=== PATIENT | male | born 1980 | race Caucasian/White ===

== ENCOUNTER 2018-05-19 18:53 | Inpatient (IN) | payer SELFPAY ==
[2018-05-19] MEDS ORDERED: ONDANSETRON 4 MG/2 ML VIAL ONE ×2 (19:37→21:39)
[2018-05-19] MEDS ORDERED: PANTOPRAZOLE 40 MG INJ ONE (19:37)
[2018-05-19] MEDS ORDERED: NA CHLORIDE 0.9% 1,000 ML ONE (19:37)
[2018-05-19] MEDS ORDERED: NA CHLORIDE 0.9% 250 ML ONE (19:38)
[2018-05-19 20:11] LABS: Absolute Lymphocytes (CBC) 2.6 K/uL (0.7-4.9); Absolute Monocytes 0.8 K/uL (0.1-1.3); Absolute Neutrophil 3.9 K/uL (1.8-8.0); Eosinophils % 1.5 % (0-4.4); Hematocrit 47.1 % (39.6-49.0); Monocytes % 10.5 % (3.3-12.3); RBC Red Blood Cell Count 4.95 M/uL (4.33-5.43)
[2018-05-19 20:31] LABS: Protime INR 1.08
[2018-05-19 20:32] LABS: Albumin 3.6 g/dL (3.4-5.0); Bilirubin Direct 0.3 mg/dL (0-0.2); Bilirubin Total 1.8 mg/dL (0.2-1.0); Potassium 3.6 mmol/L (3.5-5.1); Protein, Total 6.9 g/dL (6.4-8.2)
[2018-05-19] MEDS ORDERED: MORPHINE 4 MG/ML SYR ONE (20:36)
[2018-05-19] MEDS ORDERED: MEPERIDINE HCL 50 MG/ML AMP ONE (21:35)
--- NOTE | 2018-05-19 22:13 | RAD REPORT ---
EXAM DESCRIPTION: US - Abdomen Exam Limited - 05/19/2018 9:55 pm CLINICAL HISTORY: ABD PAIN COMPARISON: No comparisons FINDINGS: The gallbladder demonstrates no gallstones. No pericholecystic fluid or gallbladder wall t hickening. The common bile duct is normal measuring 2 mm. The liver demonstrates no findings of intrahepatic biliary dilatation. IMPRESSION: Unremarkable examination.
--- NOTE | 2018-05-19 23:29 | ER ---
Nurse's Notes [facility] Name: Ramirez Bee Age: 37 yrs Sex: Male : 1980 Arrival Date: 05/19/2018 Time: 18:56 Bed 26 Private MD: Chavo Jennings Diagnosis: Hematemesis;Upper abdominal pain, unspecified;Blood in stool Presentation: 05/19 19:06 Presenting complaint: Patient states: Diarrhea and vomiting X3 days. pt stated bright ak1 red blood in stool and bright red blood in vomit. pt stated 5 bouts of Diarrhea today and vomited 8 times today. Transition of care: patient was not received from another setting of care. Onset of symptoms is unknown. Risk Assessment: Do you want to hurt yourself or someone else? Patient reports no desire to harm self or others. Initial Sepsis Screen: Does the patient meet any 2 criteria? No. Patient's initial sepsis screen is negative. Does the patient have a suspected source of infection? No. Patient's initial sepsis screen is negative. Care prior to arrival: None. 19:06 Method Of Arrival: Ambulatory ak1 19:06 Acuity: JERMAINE 3 ak1 Triage Assessment: 19:08 General: Appears in no apparent distress. Behavior is calm, cooperative. ak1 Historical: - Allergies: 19:08 No Known Allergies; ak1 - Home Meds: 19:08 None [Active]; ak1 - PMHx: 19:08 None; ak1 - PSHx: 19:08 None; ak1 - Immunization history:: Adult Immunizations unknown. - Social history:: Smoking status: Patient uses tobacco products, smokes one-half pack cigarettes per day, Patient uses alcohol, on a daily basis. admits to "couple of beers" a day. - Ebola Screening: : No symptoms or risks identified at this time. - Family history:: not pertinent. - Hospitalizations: : No recent hospitalization is reported. Screenin:09 Abuse screen: Denies threats or abuse. Denies injuries from another. Nutritional ak1 screening: No deficits noted. Tuberculosis screening: No symptoms or risk factors identified. Fall Risk None identified. Assessment: 19:28 General: Appears in no apparent distress. comfortable, Behavior is calm, cooperative, aa1 appropriate for age. Pain: Complains of pain in abdomen Pain currently is 10 out of 10 on a pain scale. Quality of pain is described as sharp, Pain began 2-3 days ago. Neuro: Level of Consciousness is awake, alert, obeys commands, Oriented to person, place, time, situation, Moves all extremities. Speech is normal. Cardiovascular: Heart tones S1 S2 present Rhythm is regular. Respiratory: Airway is patent Respiratory effort is even, unlabored, Respiratory pattern is regular, symmetrical. GI: Abdomen is non-distended, Bowel sounds present X 4 quads. Abd is soft X 4 quads Reports diarrhea, vomiting, bright red blood in stool \\T\\ emesis. : No signs and/or symptoms were reported regarding the genitourinary system. EENT: No signs and/or symptoms were reported regarding the EENT system. Derm: Skin is intact, is healthy with good turgor, Skin is pink, warm \\T\\ dry. Musculoskeletal: Circulation, motion, and sensation intact. Capillary refill < 3 seconds. 19:30 Reassessment: Notified Juan Pablo in CT that pt has finished PO contrast. aa1 21:14 Reassessment: Patient appears in no apparent distress at this time. Patient and/or aa1 family updated on plan of care and expected duration. Pain level reassessed. Patient is alert, oriented x 3, equal unlabored respirations, skin warm/dry/pink. Pt taken to CT at this time. 21:20 Reassessment: Pt back from CT. States that pain in abdomen is getting worse and the aa1 morphine did not help. Also reports he is still nauseated. Dr. Buck notified. 21:34 Reassessment: Patient appears in no apparent distress at this time. Patient and/or aa1 family updated on plan of care and expected duration. Pain level reassessed. Patient is alert, oriented x 3, equal unlabored respirations, skin warm/dry/pink. Pt taken to u/s at this time. 22:30 Reassessment: Patient appears in no apparent distress at this time. Patient and/or aa1 family updated on plan of care and expected duration. Pain level reassessed. Patient is alert, oriented x 3, equal unlabored respirations, skin warm/dry/pink. Awaiting CT results. 23:30 Reassessment: Patient appears in no apparent distress at this time. Patient and/or aa1 family updated on plan of care and expected duration. Pain level reassessed. Patient is alert, oriented x 3, equal unlabored respirations, skin warm/dry/pink. Awaiting provider reassessment. 05/20 00:16 Reassessment: Patient appears in no apparent distress at this time. Patient and/or aa1 family updated on plan of care and expected duration. Pain level reassessed. Patient is alert, oriented x 3, equal unlabored respirations, skin warm/dry/pink. Attempted to call report to 4th floor, was told nurse will call back shortly. 00:31 Reassessment: Patient appears in no apparent distress at this time. Patient is alert, aa1 oriented x 3, equal unlabored respirations, skin warm/dry/pink. Report given to Mona on 4th floor. Vital Signs: 05/19 19:08 BP 142 / 105; Pulse 96; Resp 16; Temp 98; Pulse Ox 98% on R/A; Weight 86.18 kg (R); ak1 Height 5 ft. 9 in. (175.26 cm) (R); Pain 10/10; 20:00 BP 127 / 97; Pulse 81; Resp 18; Pulse Ox 98% on R/A; Pain 10/10; aa1 21:20 BP 139 / 102; Pulse 79; Resp 16; Pulse Ox 99% on R/A; Pain 10/10; aa1 22:58 BP 123 / 95; Pulse 88; Resp 18; Pulse Ox 100% on R/A; mg2 05/20 00:11 BP 126 / 88; Pulse 65; Resp 16; Temp 98.2; Pulse Ox 95% on R/A; Pain 7/10; aa1 05/19 19:08 Body Mass Index 28.06 (86.18 kg, 175.26 cm) ak1 ED Course: 05/19 18:56 Patient arrived in ED. mr 18:57 Chavo Jennings MD is Private Physician. mr 19:08 Triage completed. ak1 19:08 Arm band placed on Patient placed in an exam room, on a stretcher, Patient notified of ak1 wait time. 19:09 Patient has correct armband on for positive identification. Placed in gown. Bed in low ak1 position. Call light in reach. Side rails up X 1. 19:11 Mynor Buck MD is Attending Physician. rn 19:23 Corinna Schaffer, CORWIN is Primary Nurse. aa1 19:26 Oral contrast given. vm2 19:35 Initial lab(s) drawn, by me, sent to lab. T\\T\\S collected, blood band applied to patient. aa1 Inserted saline lock: 20 gauge in left forearm, using aseptic technique. Blood collected. 19:47 Oral contrast reported to be complete. vm2 20:[address] via wheelchair. vm2 21:30 CT Abd/Pelvis - W/Contrast In Process Unspecified. EDMS 21:55 US Abdomen Limited In Process Unspecified. EDMS 23:28 Jania Bolaños MD is Hospitalizing Provider. rn 05/20 00:13 No provider procedures requiring assistance completed. Patient admitted, IV remains in aa1 place. Administered Medications: 05/19 19:50 Drug: Zofran 4 mg Route: IVP; Site: left forearm; aa1 21:20 Follow up: Response: No adverse reaction; Nausea unchanged aa1 19:50 Drug: NS 0.9% 1000 ml Route: IV; Rate: 1000 ml; Site: left forearm; aa1 05/20 00:01 Follow up: Response: No adverse reaction; IV Status: Completed infusion mg2 05/19 19:52 Drug: ProTONIX 40 mg Route: IVP; Site: left forearm; aa1 21:20 Follow up: Response: No adverse reaction aa1 19:55 Drug: ProTONIX 8 mg/hr Route: IV; Rate: 25 ml/hr; Site: left forearm; aa1 05/20 00:17 Follow up: IV Status: Infusion continued upon admission aa1 05/19 20:28 Drug: morphine 4 mg Route: IVP; Site: left forearm; aa1 21:20 Follow up: Response: No adverse reaction; Pain is unchanged, physician notified aa1 :26 Drug: Demerol 50 mg Route: IVP; Site: left forearm; aa1 23:58 Follow up: Response: No adverse reaction; Marked relief of symptoms mg2 21:27 Drug: Zofran 4 mg Route: IVP; Site: left forearm; aa1 22:30 Follow up: Response: No adverse reaction; Marked relief of symptoms mg2 23:56 Drug: morphine 4 mg Route: IVP; Site: left antecubital; mg2 05/20 00:53 Follow up: Response: No adverse reaction; Pain is decreased aa1 Outcome: 05/19 23:29 Decision to Hospitalize by Provider. rn 05/20 00:31 Admitted to Med/surg accompanied by nurse, via wheelchair, room 418, with chart, Report aa1 called to Mona Condition: good Instructed on the need for admit, Demonstrated understanding of instructions. 01:02 Patient left the ED. aa1 Signatures: Dispatcher [employer] EDMS Corinna Schaffer RN RN aa1 Jolly Olsen Roman, MD MD rn Krenek, Amber, RN RN ak1 Mariah Roberts 2 Stephon Graf RN RN mg2
--- NOTE | 2018-05-19 23:29 | EDPHYS ---
Physician Documentation [facility] Name: Ramirez Bee Age: 37 yrs Sex: Male : 1980 Arrival Date: 05/19/2018 Time: 18:56 Bed 26 Private MD: Chavo Jennings ED Physician Mynor Buck HPI: 05/19 19:30 This 37 yrs old Male presents to ER via Ambulatory with complaints of rn Vomiting blood, Abdominal Pain. 19:30 The patient presents to the emergency department with nausea, vomiting, diarrhea, rn abdominal pain. Onset: The symptoms/episode began/occurred 3 day(s) ago. Possible causes: unknown. The symptoms are aggravated by nothing. The symptoms are alleviated by nothing. Severity of symptoms: At their worst the symptoms were moderate in the emergency department the symptoms are unchanged. The patient has experienced a previous episode. Reports vomiting a little blood and having diarrhea with red blood as well, no known medical problems other than acid reflux, no fever, has happened once before, unknown etiology, takes nexium daily. + abd pain, upper, and bloating.. Historical: - Allergies: 19:08 No Known Allergies; ak1 - Home Meds: 19:08 None [Active]; ak1 - PMHx: 19:08 None; ak1 - PSHx: 19:08 None; ak1 - Immunization history:: Adult Immunizations unknown. - Social history:: Smoking status: Patient uses tobacco products, smokes one-half pack cigarettes per day, Patient uses alcohol, on a daily basis. admits to "couple of beers" a day. - Ebola Screening: : No symptoms or risks identified at this time. - Family history:: not pertinent. - Hospitalizations: : No recent hospitalization is reported. ROS: 19:30 Constitutional: Negative for fever, chills, and weight loss, Eyes: Negative for injury, rn pain, redness, and discharge, Neck: Negative for injury, pain, and swelling, Cardiovascular: Negative for chest pain, palpitations, and edema, Respiratory: Negative for shortness of breath, cough, wheezing, and pleuritic chest pain, Abdomen/GI: + abd pain and nausea/vomiting/diarrhea, + blood in emesis and stool Back: Negative for injury and pain, MS/Extremity: Negative for injury and deformity, Skin: Negative for injury, rash, and discoloration, Neuro: Negative for headache, weakness, numbness, tingling, and seizure. Exam: 19:30 Constitutional: This is a well developed, well nourished patient who is awake, alert, rn and in no acute distress. Head/Face: Normocephalic, atraumatic. Eyes: Pupils equal round and reactive to light, extra-ocular motions intact. Lids and lashes normal. Conjunctiva and sclera are non-icteric and not injected. Cornea within normal limits. Periorbital areas with no swelling, redness, or edema. ENT: MMM Abdomen/GI: soft, + abd tenderness RUQ/epigastric/LUQ, no peritoneal signs. Skin: Warm, dry with normal turgor. Normal color with no rashes, no lesions, and no evidence of cellulitis. MS/ Extremity: Pulses equal, no cyanosis. Neurovascular intact. Full, normal range of motion. Equal circumference. Neuro: Awake and alert, GCS 15 Vital Signs: 19:08 BP 142 / 105; Pulse 96; Resp 16; Temp 98; Pulse Ox 98% on R/A; Weight 86.18 kg (R); ak1 Height 5 ft. 9 in. (175.26 cm) (R); Pain 10/10; 20:00 BP 127 / 97; Pulse 81; Resp 18; Pulse Ox 98% on R/A; Pain 10/10; aa1 21:20 BP 139 / 102; Pulse 79; Resp 16; Pulse Ox 99% on R/A; Pain 10/10; aa1 22:58 BP 123 / 95; Pulse 88; Resp 18; Pulse Ox 100% on R/A; mg2 05/20 00:11 BP 126 / 88; Pulse 65; Resp 16; Temp 98.2; Pulse Ox 95% on R/A; Pain 7/10; aa1 05/19 19:08 Body Mass Index 28.06 (86.18 kg, 175.26 cm) ak1 MDM: 05/19 19:11 Patient medically screened. rn 23:26 Differential diagnosis: gastritis, diverticulitis, viral gastroenteritis, rn gastroenteritis. Data reviewed: vital signs, nurses notes, lab test result(s), radiologic studies, CT scan, and as a result, I will admit patient. Counseling: I had a detailed discussion with the patient and/or guardian regarding: the historical points, exam findings, and any diagnostic results supporting the discharge/admit diagnosis, lab results, radiology results, the need for further work-up and treatment in the hospital. Admission orders: after a detailed discussion of the patient's condition and case, the admit orders are written by me. Special discussion:. ED course: Pt with unclear etiology of hematemesis/hematochezia, still having abd pain, no acute findings on u/s or ct, will admit for GI consult and likely scope, NPO after midnight. Dr. Bolaños notified. . 05/19 19:17 Order name: Basic Metabolic Panel; Complete Time: 21:16 05/19 19:17 Order name: CBC with Diff; Complete Time: 21:16 05/19 19:17 Order name: Hepatic Function; Complete Time: 21:16 05/19 19:17 Order name: Lipase; Complete Time: 21:16 05/19 19:17 Order name: Type And Screen; Complete Time: 21:32 05/19 19:17 Order name: PT-INR; Complete Time: 21:16 05/19 19:17 Order name: Ptt, Activated; Complete Time: 21:16 05/19 23:11 Order name: ABO/RH no charge [facility] 05/19 23:37 Order name: Basic Metabolic Panel [facility] 05/19 23:37 Order name: Basic Metabolic Panel [facility] 05/19 23:37 Order name: CBC with Automated Diff [facility] 05/19 23:37 Order name: CBC with Automated Diff [facility] 05/19 23:37 Order name: Hematocrit [facility] 05/19 23:37 Order name: Hematocrit [facility] 05/19 19:17 Order name: CT Abd/Pelvis - W/Contrast 05/19 21:17 Order name: US Abdomen Limited; Complete Time: 22:52 05/19 23:37 Order name: CONS Pharmacy Consult [facility] 05/19 23:37 Order name: CONS Physician Consult [facility] 05/19 23:37 Order name: NPO [facility] 05/19 23:37 Order name: Hematocrit [facility] 05/19 23:37 Order name: Hemoglobin [facility] 05/19 23:37 Order name: Hemoglobin [facility] 05/19 19:17 Order name: IV Saline Lock; Complete Time: 19:44 rn 05/19 19:17 Order name: Labs collected and sent; Complete Time: 19:44 rn 05/19 23:37 Order name: EKG Electrocardiogram EDMS 05/19 23:37 Order name: EKG Electrocardiogram EDMS 05/19 23:37 Order name: EKG Electrocardiogram EDMS 05/19 23:37 Order name: EKG Electrocardiogram EDMS 05/19 23:37 Order name: EKG Electrocardiogram EDMS 05/19 23:37 Order name: EKG Electrocardiogram EDMS 05/19 23:37 Order name: EKG Electrocardiogram EDMS 05/19 23:37 Order name: EKG Electrocardiogram EDMS 05/19 23:37 Order name: EKG Electrocardiogram EDMS 05/19 23:37 Order name: EKG Electrocardiogram EDMS Administered Medications: 19:50 Drug: Zofran 4 mg Route: IVP; Site: left forearm; aa1 21:20 Follow up: Response: No adverse reaction; Nausea unchanged aa1 19:50 Drug: NS 0.9% 1000 ml Route: IV; Rate: 1000 ml; Site: left forearm; aa1 05/20 00:01 Follow up: Response: No adverse reaction; IV Status: Completed infusion mg2 05/19 19:52 Drug: ProTONIX 40 mg Route: IVP; Site: left forearm; aa1 21:20 Follow up: Response: No adverse reaction aa1 19:55 Drug: ProTONIX 8 mg/hr Route: IV; Rate: 25 ml/hr; Site: left forearm; aa1 05/20 00:17 Follow up: IV Status: Infusion continued upon admission aa1 05/19 20:28 Drug: morphine 4 mg Route: IVP; Site: left forearm; aa1 21:20 Follow up: Response: No adverse reaction; Pain is unchanged, physician notified aa1 21:26 Drug: Demerol 50 mg Route: IVP; Site: left forearm; aa1 23:58 Follow up: Response: No adverse reaction; Marked relief of symptoms mg2 21:27 Drug: Zofran 4 mg Route: IVP; Site: left forearm; aa1 22:30 Follow up: Response: No adverse reaction; Marked relief of symptoms mg2 23:56 Drug: morphine 4 mg Route: IVP; Site: left antecubital; mg2 05/20 00:53 Follow up: Response: No adverse reaction; Pain is decreased aa1 Disposition: 05/19/18 23:29 Hospitalization ordered by Jania Bolaños for Inpatient Admission. Preliminary diagnosis are Hematemesis, Upper abdominal pain, unspecified, Blood in stool. - Bed requested for Telemetry/MedSurg (Inpatient). - Status is Inpatient Admission. aa1 - Condition is Stable. - Problem is new. - Symptoms have improved. UTI on Admission? No Signatures: Dispatcher [employer] EDMS Corinna Schaffer RN RN aa1 Mynor Buck MD MD rn Krenek, Amber, RN RN ak1 Kailyn Miles RN RN cg Stephon Graf, RN RN mg2 Corrections: (The following items were deleted from the chart) 05/19 23:40 23:29 Hospitalization Ordered by Jania Bolaños MD for Inpatient Admission. Preliminary cg diagnosis is Hematemesis; Upper abdominal pain, unspecified; Blood in stool. Bed requested for Telemetry/MedSurg (Inpatient). Status is Inpatient Admission. Condition is Stable. Problem is new. Symptoms have improved. UTI on Admission? No. rn 05/20 01:02 05/19 23:40 05/19/2018 23:29 Hospitalization Ordered by Jania Bolaños MD for Inpatient aa1 Admission. Preliminary diagnosis is Hematemesis; Upper abdominal pain, unspecified; Blood in stool. Bed requested for Telemetry/MedSurg (Inpatient). Status is Inpatient Admission. Condition is Stable. Problem is new. Symptoms have improved. UTI on Admission? No. cg
[2018-05-19] MEDS ORDERED: ACETAMINOPHEN 500 MG TAB PO PRN (23:32)
[2018-05-19] MEDS ORDERED: NA CHLORIDE 0.9% 250 ML IV SCH (23:45)
[2018-05-20] MEDS ORDERED: MORPHINE 4 MG/ML SYR ONE (00:03)
[2018-05-20] MEDS: NA CHLORIDE 0.9% 1,000 ML IV SCH ×2 (02:12→16:23)
[2018-05-20 02:23] LABS: Hematocrit 41.7 % (39.6-49.0)
[2018-05-20] MEDS: MORPHINE 2 MG/ML SYR IV PRN ×2 (03:45→11:40)
[2018-05-20] MEDS: ONDANSETRON 4 MG/2 ML VIAL IV PRN ×3 (03:46→18:43)
[2018-05-20 05:43] VITALS: BMI 28.0
[2018-05-20 05:58] LABS: Urine Appearance CLEAR; Urine Bilirubin NEGATIVE (NEG); Urine Blood NEGATIVE (NEG); Urine Color YELLOW; Urine Glucose NEGATIVE (NEG); Urine Protein NEGATIVE (NEG); Urine Specific Gravity >=1.030 (1.005-1.030); Urine Urobilinogen 0.2 mg/dL (0.2-1.0); Urine pH 5.5 (5.0-7.0)
[2018-05-20 06:03] LABS: Urine Microscopic Reflex NO UMIC
[2018-05-20 06:08] LABS: Absolute Lymphocytes (CBC) 2.6 K/uL (0.7-4.9); Absolute Monocytes 0.6 K/uL (0.1-1.3); Absolute Neutrophil 2.8 K/uL (1.8-8.0); Eosinophils % 3.1 % (0-4.4); Hematocrit 41.3 % (39.6-49.0); Lymphocytes % 41.2 % (15.3-44.8); MPV 9.1 fL (7.6-11.3); Monocytes % 10.1 % (3.3-12.3); RBC Red Blood Cell Count 4.34 M/uL (4.33-5.43)
[2018-05-20 06:51] LABS: Potassium 3.7 mmol/L (3.5-5.1)
[2018-05-20] MEDS ORDERED: MEPERIDINE HCL 25 MG/0.5 ML IV ONE (07:07)
--- NOTE | 2018-05-20 07:27 | P.HP ---
Certification for Inpatient Patient admitted to: Inpatient With expected LOS: >2 Midnights Patient will require the following post-hospital care: None Practitioner: I am a practitioner with admitting privileges, knowledge of patient current condition, hospital course, and medical plan of care. Services: Services provided to patient in accordance with Admission requirements found in Title 42 Section 412.3 of the Code of Federal Regulations Patient History Date of Service: 05/20/18 Reason for admission: GI bleeding History of Present Illness: Patient is a 37yo who was admitted to the hospital with a GI bleeding. Patient had apparently been having blood in stool and his vomit for the last 3 days. He came into the hospital for further evaluation. He had been worked up at an outside hospital but states that there was no abnormal findings. He had an EGD and he had studies to evaluate his gallbladder. His EGD did reveal questionable abnormal findings which he indicates may have been gastritis. He does not remember the name of his doctors that he saw at that time. He had been doing okay until he noted having the bleeding. He does not have much of an appetite. In the emergency room his LFTs were elevated. GI has been consulted. He will be admitted to the hospital for further evaluation. Allergies No Known Allergies Allergy (Unverified 08/13/11 11:45) - Past Medical/Surgical History Has patient received pneumonia vaccine in the past: No Diabetic: No -: no med hx -: EGD - Family History Father Family History: Reviewed- Non-Contributory - Social History Smoking Status: Current every day smoker Alcohol use: Yes CD- Drugs: No Caffeine use: No Place of Residence: Home Review of Systems 10-point ROS is otherwise unremarkable Physical Examination - Vital Signs Temperature: 98.4 F Blood Pressure: 138/64 Pulse: 60 Respirations: 16 Pulse Ox (%): 97 - Physical Exam General: Alert, In no apparent distress, Oriented x3 HEENT: Atraumatic, PERRLA, Mucous membr. moist/pink, EOMI, Sclerae nonicteric Neck: Supple, 2+ carotid pulse no bruit, No LAD, Without JVD or thyroid abnormality Respiratory: Clear to auscultation bilaterally, Normal air movement Cardiovascular: Regular rate/rhythm, Normal S1 S2, No murmurs Gastrointestinal: Normal bowel sounds, Soft and benign, No rebound, No guarding , Distended, Tenderness Musculoskeletal: No clubbing, No swelling, No tenderness Integumentary: No rashes Neurological: Normal gait, Normal speech, Normal strength at 5/5 x4 extr, Normal tone, Sensation intact, Cranial nerves 3-12 intact, Normal affect Lymphatics: No axilla or inguinal lymphadenopathy - Studies Laboratory Data (last 24 hrs) 05/19/18 19:35: PT 12.7 H, INR 1.08, APTT 26.7 05/19/18 19:35: WBC 7.5, Hgb 16.3, Hct 47.1, Plt Count 165 05/19/18 19:35: Sodium 139, Potassium 3.6, BUN 13, Creatinine 1.09, Glucose 103 , Total Bilirubin 1.8 H, AST 169 H, ALT 143 H, Alkaline Phosphatase 144 H, Lipase 151 Assessment & Plan - Problems (Diagnosis) (1) Abdominal pain Current Visit: Yes Status: Acute (2) GI bleeding Current Visit: Yes Status: Acute - Plan Plan: 1. Continue with IV hydration and PPI drip 2. Continue with IV antibiotics if patient with fevers or leukocytosis 3. Continue with pain control 4. NPO 5. GI consultation 6. Serial H&H, and we will monitor LFTs and lipase along with electrolytes. 7. GI and DVT prophylaxis Discharge Plan: Home Plan to discharge in: 48 Hours - Advance Directives Does patient have a Living Will: No Does patient have a Durable POA for Healthcare: No - Code Status/Comfort Care Code Status Assessed: Yes Code Status: Full Code Critical Care: No Time Spent Managing PTS Care (In Minutes): 40
[2018-05-20] MEDS: PANTOPRAZOLE 40 MG INJ IVP SCH ×2 (08:24→16:33)
[2018-05-20 08:25] LABS: Albumin 2.9 g/dL (3.4-5.0); Bilirubin Direct 0.3 mg/dL (0-0.2); Bilirubin Total 1.7 mg/dL (0.2-1.0); Protein, Total 5.9 g/dL (6.4-8.2)
--- NOTE | 2018-05-20 12:53 | RAD REPORT ---
EXAM DESCRIPTION: CT ABDOMEN PELVIS WITH IV CONTRAST CLINICAL HISTORY: Hematemesis and hematochezia COMPARISON: None. TECHNIQUE: CT scan of the abdomen and pelvis with IV contrast. This exam was performed according to our departmental dose-optimization program, which includes automated exposure control, adjustment of the mA and/or kV according to patient size and/or use of iterative reconstruction technique. FINDINGS: Lung bases are clear without pleural or pericardial effusions. A small hiatal hernia is se en. There is diffuse hepatic steatosis. The spleen, pancreas, gallbladder, adrenal glands, and kidneys ar e normal without hydronephrosis or urinary stones. The pelvic organs are also normal. No small bowel obstruction. The appendix is normal. There is no evidence of diverticulitis. No intrap eritoneal free fluid or free air is identified. The aorta is normal caliber. No acute osseous findings are appreciated. IMPRESSION: No acute abdominal or pelvic pathology. Electronically signed by: Jamie Cuevas MD 05/19/2018 9:47 PM CDT Due to temporary technical issues with the PACS/Fluency reporting system, reports are being signed by the in house radiologist as a courtesy to ensure prompt reporting. The interpreting radiologist is f ully responsible for the content of the report.
[2018-05-20] MEDS ORDERED: MORPHINE 2 MG/ML SYR IV ONE (18:50)
[2018-05-20] MEDS ORDERED: METOCLOPRAMIDE 10 MG/2mL INJ IV SCH (21:00)
[2018-05-20] MEDS ORDERED: GOLYTELY 4000 ML PO ONE (22:00)
[2018-05-20] MEDS: METOCLOPRAMIDE 10 MG/2mL INJ IV SCH (22:00)
[2018-05-20] MEDS ORDERED: MAGNESIUM CITRATE 300 ML BOT PO ONE (22:00)
[2018-05-21] MEDS: METOCLOPRAMIDE 10 MG/2mL INJ IV SCH ×2 (04:22→09:00)
[2018-05-21] MEDS: NA CHLORIDE 0.9% 1,000 ML IV SCH (04:23)
[2018-05-21] MEDS ORDERED: MEPERIDINE HCL 25 MG/0.5 ML IV ONE (04:35)
[2018-05-21 07:49] LABS: Absolute Monocytes 0.5 K/uL (0.1-1.3); Absolute Neutrophil 2.8 K/uL (1.8-8.0); Basophils % 0.9 % (0-1.3); Eosinophils % 3.7 % (0-4.4); Hematocrit 43.8 % (39.6-49.0); Lymphocytes % 35.5 % (15.3-44.8); MPV 9.4 fL (7.6-11.3); Monocytes % 8.6 % (3.3-12.3)
[2018-05-21 07:50] LABS: Albumin 3.3 g/dL (3.4-5.0); Bilirubin Total 2.7 mg/dL (0.2-1.0); Potassium 3.6 mmol/L (3.5-5.1); Protein, Total 6.4 g/dL (6.4-8.2)
[2018-05-21 07:51] LABS: Phosphorus 2.2 mg/dL (2.5-4.9)
[2018-05-21 07:52] LABS: Protime INR 1.01
[2018-05-21 08:27] LABS: Urine Appearance CLEAR; Urine Bilirubin NEGATIVE (NEG); Urine Blood NEGATIVE (NEG); Urine Color YELLOW; Urine Glucose NEGATIVE (NEG); Urine Protein NEGATIVE (NEG); Urine Specific Gravity 1.015 (1.005-1.030); Urine Urobilinogen 0.2 mg/dL (0.2-1.0); Urine pH 5.5 (5.0-7.0)
[2018-05-21] MEDS: PANTOPRAZOLE 40 MG INJ IVP SCH ×2 (09:00→20:09)
[2018-05-21 09:03] LABS: Barbiturates NEGATIVE (NEGATIVE); Benzodiazepines NEGATIVE (NEGATIVE); Cocaine NEGATIVE (NEGATIVE); METHAMPHETAM NEGATIVE (NEGATIVE); Methadone NEGATIVE (NEGATIVE); Opiates NEGATIVE (NEGATIVE); Phencyclidine NEGATIVE (NEGATIVE); THC Cannibis NEGATIVE (NEGATIVE)
[2018-05-21 09:32] LABS: Urine Bacteria NONE SEEN /HPF (NONE SEEN); Urine Culture Reflex Order NOT NEEDED; Urine RBC <5 /HPF (NONE SEEN)
[2018-05-21 09:33] LABS: Urine Mucus NS /HPF (NONE SEEN)
[2018-05-21] MEDS ORDERED: PROPOFOL 200 MG/20 ML VIAL IV ONE ×3 (12:16→12:40)
[2018-05-21] MEDS ORDERED: LIDOCAINE 1% MPF 2 ML AMPULE ONE (12:16)
[2018-05-21] MEDS ORDERED: Ringers Lactate 0 ML IV ONE (12:26)
[2018-05-21] MEDS ORDERED: MIDAZOLAM HCL 2 MG/2 ML INJ ONE (12:38)
--- NOTE | 2018-05-21 13:26 | P.PN ---
Subjective Date of Service: 05/21/18 Chief Complaint: GI bleeding Pt seen and examined at bedside. Chart Reviewed. Case DW with GI. Currently Awaiting EGD and Colonoscopy. Denies Bloody Stool or Hematesis Review of Systems 10-point ROS is otherwise unremarkable Physical Examination - Vital Signs Temperature: 98.2 F Blood Pressure: 115/87 Pulse: 59 Respirations: 18 Pulse Ox (%): 96 - Physical Exam General: Alert, In no apparent distress HEENT: Atraumatic, PERRLA, EOMI Neck: Supple, JVD not distended Respiratory: Clear to auscultation bilaterally, Normal air movement Cardiovascular: Regular rate/rhythm, Normal S1 S2 Gastrointestinal: Normal bowel sounds, No tenderness Musculoskeletal: No tenderness Integumentary: No rashes Neurological: Normal speech, Normal tone, Normal affect Lymphatics: No axilla or inguinal lymphadenopathy - Studies Medications List Reviewed: Yes Assessment And Plan - Current Problems (Diagnosis) (1) GI bleeding Current Visit: Yes Status: Acute Plan: Possible GI bleeding. Most likely Hemrhiodal -H/H stable at this time -GI consulted. Appreciated Reccs -EGD and Colonoscopy today -IV protonix for now -Monitor closely Qualifiers: GI bleed type/associated pathology: unspecified gastrointestinal hemorrhage type Qualified Code(s): K92.2 - Gastrointestinal hemorrhage, unspecified (2) Elevated LFTs Current Visit: Yes Status: Acute Plan: Elevated LFT most likely 2.2 to Alcoholic abuse vs Liver disease -Abd US and ABD CT with Diffuse liver steatosis -Will get Hepatitis panel, Iron Studies, ESR, CRP and Antismooth abx to r.o any Liver disease Discharge Plan: Other Plan to discharge in: Greater than 2 days - Code Status/Comfort Care Code Status Assessed: Yes Critical Care: No
[2018-05-21 14:35] LABS: C-Reactive Protein 5.32 mg/L (<3.00); Ferritin 600.2 ng/mL (26-388)
[2018-05-22 05:49] LABS: Absolute Monocytes 0.6 K/uL (0.1-1.3); Absolute Neutrophil 3.1 K/uL (1.8-8.0); Eosinophils % 4.3 % (0-4.4); Hematocrit 43.3 % (39.6-49.0); MPV 9.9 fL (7.6-11.3); Monocytes % 9.4 % (3.3-12.3); RBC Red Blood Cell Count 4.58 M/uL (4.33-5.43)
[2018-05-22 06:23] LABS: Albumin 3.1 g/dL (3.4-5.0); Bilirubin Total 1.8 mg/dL (0.2-1.0); Potassium 3.5 mmol/L (3.5-5.1); Protein, Total 6.4 g/dL (6.4-8.2); Thyroid Stimulating Hormone 1.1 uIU/mL (0.360-3.740)
[2018-05-22 08:30] VITALS: O2SAT 94
[2018-05-22] MEDS: PANTOPRAZOLE 40 MG INJ IVP SCH (08:31)
--- NOTE | 2018-05-22 11:16 | RAD REPORT ---
EXAM DESCRIPTION: RAD - Small Bowel Series - 05/22/2018 11:06 am CLINICAL HISTORY: Abdominal pain/ GI bleeding COMPARISON: None. FINDINGS: Contrast enters the colon by approximately 1 hour The mucosal folds of the small bowel appear normal. No permanent filling defects, obstructing or constricting lesions are seen. The small bowel caliber is normal. IMPRESSION: Unremarkable small bowel series.
--- NOTE | 2018-05-22 13:35 | RAD REPORT ---
EXAM DESCRIPTION: NM - Bowel Imaging Gerardo - 05/22/2018 10:36 am CLINICAL HISTORY: Gastrointestinal bleeding COMPARISON: None. TECHNIQUE: The patient was administered approximately 10.7 millicuries technetium pertechnetate intr avenously. Dynamic images of the abdomen pelvis obtained for 60 minutes FINDINGS: Physiologic radiotracer activity is present within the stomach and bladder. Radiotracer tr avels from the stomach into the duodenum and small bowel. No abnormal radiotracer activity is seen within the colon and small bowel. Specifically the right low er quadrant appears unremarkable IMPRESSION: Unremarkable Meckel's scan
--- NOTE | 2018-05-22 14:30 | P.SSS ---
Patient History Date of Service: 05/22/18 Reason for admission: GI bleeding History of Present Illness: Patient is a 37yo who was admitted to the hospital with a GI bleeding. Patient had apparently been having blood in stool and his vomit for the last 3 days. He came into the hospital for further evaluation. He had been worked up at an outside hospital but states that there was no abnormal findings. He had an EGD and he had studies to evaluate his gallbladder. His EGD did reveal questionable abnormal findings which he indicates may have been gastritis. He does not remember the name of his doctors that he saw at that time. He had been doing okay until he noted having the bleeding. He does not have much of an appetite. In the emergency room his LFTs were elevated. GI has been consulted. He will be admitted to the hospital for further evaluation. Allergies No Known Allergies Allergy (Unverified 08/13/11 11:45) Home Medications: NK [No Home Meds] 05/20/18 - Past Medical/Surgical History Has patient received pneumonia vaccine in the past: No Diabetic: No -: no med hx -: EGD - Social History Smoking Status: Current every day smoker Alcohol use: Yes CD- Drugs: No Caffeine use: No Place of Residence: Home Review of Systems 10-point ROS is otherwise unremarkable Physical Examination - Vital Signs Temperature: 98.5 F Blood Pressure: 134/85 Pulse: 70 Respirations: 16 Pulse Ox (%): 95 - Physical Exam General: Alert, In no apparent distress HEENT: Atraumatic, PERRLA, Mucous membr. moist/pink, EOMI, Sclerae nonicteric Neck: Supple, 2+ carotid pulse no bruit, No LAD, Without JVD or thyroid abnormality Respiratory: Clear to auscultation bilaterally, Normal air movement Cardiovascular: Regular rate/rhythm, Normal S1 S2 Gastrointestinal: Normal bowel sounds, No tenderness Musculoskeletal: No tenderness Integumentary: No rashes Neurological: Normal gait, Normal speech, Normal strength at 5/5 x4 extr, Normal tone, Normal affect Lymphatics: No axilla or inguinal lymphadenopathy - Diagnosis (Problem(s)) (1) GI bleeding Current Visit: Yes Status: Acute Qualifiers: GI bleed type/associated pathology: unspecified gastrointestinal hemorrhage type Qualified Code(s): K92.2 - Gastrointestinal hemorrhage, unspecified (2) Elevated LFTs Current Visit: Yes Status: Acute Treatment Summary: Overall during the hospital stay patient remained stable Patient was initially admitted to the hospital for concerns of GI bleeding. Patient had bright red blood per rectum. GI was consulted. Patient initially was admitted for a colonoscopy and an EGD to be done to rule out any acute blood loss anemia. Patient had a colonoscopy done here in the hospital along with the EGD. EGD was consistent with gastritis with hiatal hernia. Colonoscopy was consistent with internal and external hemorrhoids. Patient was kept on IV Protonix until the procedure was done after which she was switched over to oral Protonix. Patient's bleeding did stop while here in the hospital and his hemoglobin remained stable while here in the hospital as well. Patient did not require any blood transfusion. Of note while patient was here in the hospital he had elevated LFTs along with T. bili Chaudhary. Most likely secondary to alcoholism. Abdominal ultrasound and CT was consistent with diffuse hepatic steatosis. Patient had lab work done for hepatitis panel along with HIV which will be followed up with his primary care doctor. Once patient had the procedure done patient had a small bowel series along with Meckel's scan which were both within normal limits as well. Patient then was discharged home under stable condition once his symptoms had resolved. Patient demonstrated understanding regarding his condition. - Disposition Condition: GOOD Diet: Regular Activity: Ad caroline
[2018-05-22 17:00] VITALS: BP 144/98; TEMP 98
--- NOTE | 2018-05-22 18:33 | P.PN ---
Subjective Date of Service: 05/22/18 Chief Complaint: GI bleeding Subjective: Improving (No bleeding today. He feels better.) Review of Systems 10-point ROS is otherwise unremarkable General: Weakness (Improved ) Physical Examination - Vital Signs Temperature: 98 F Blood Pressure: 144/98 Pulse: 72 Respirations: 16 Pulse Ox (%): 96 - Physical Exam General: Alert, In no apparent distress, Oriented x3, Cooperative HEENT: Atraumatic, Normocephalic, PERRLA, EOMI Neck: Supple Cardiovascular: Normal pulses Gastrointestinal: Soft and benign, No tenderness, No rebound, No guarding Neurological: Normal speech - Studies Medications List Reviewed: Yes Assessment And Plan - Current Problems (Diagnosis) (1) Hematemesis Status: Acute Comment: None today. (2) Hematochezia Status: Acute Comment: None today. (3) Abdominal pain Status: Acute - Plan REC: 1) PPI bid 2) hemorrhoid medication 3) await Meckel's scan and small bowel series 4) outpatient pillcam 5) serial H&Hs
--- NOTE | 2018-05-23 21:03 | ENDO RPT ---
[address], [address] COLONOSCOPY PROCEDURE REPORT EXAM DATE: 05/21/2018 PATIENT NAME: Ramirez Bee MR #: [id number] BIRTHDATE: 1980 ATTENDING: Feroz [address]son [address] STATUS: inpatient - 7 [employer] DESIGNER: Krystal Madrid and Naomi Olsen RN INDICATIONS: The patient is a 37 yr old Male here for a colonoscopy due to hematochezia PROCEDURE PERFORMED: Colonoscopy MEDICATIONS: Per Anesthesia. ESTIMATED BLOOD LOSS: None CONSENT: The patient understands the risks and benefits of the procedure and understands that these risks include, but are not limited to: sedation, allergic reaction, infection, perforation and/or bleeding. Alternative means of evaluation and treatment include, among others: physical exam, x-rays, and/or surgical intervention. The patient elects to proceed with this endoscopic procedure. DESCRIPTION OF PROCEDURE: During intra-op preparation period all mechanical medical equipment was checked for proper function. Hand hygiene and appropriate measures for infection prevention was taken. Procedure, possible complications, alternatives including, but not limited to possibility of bleeding, perforation, tear, infection, sepsis, need for surgery, need for blood transfusion, were explained to the patient. After the risks, benefits and alternatives of the procedure were thoroughly explained, Informed consent was verified, confirmed and timeout was successfully executed by the treatment team. The patient was placed in the left lateral position. A digital rectal exam was performed and revealed external hemorrhoids. After appropriate level of anesthesia, the scope was passed. The [id number] ([id number]) and [id number] ([id number]) endoscope was introduced through the anus and advanced to the cecum, which was identified by both the appendix and ileocecal valve. The quality of the prep was good. The instrument was then slowly withdrawn as the colon was fully examined. Scope withdrawal time was 8 minutes. COLON FINDINGS: Small internal and external hemorrhoids were found. Retroflexed views revealed small hemorrhoids. The scope was then completely withdrawn from the patient and the procedure terminated. ADVERSE EVENTS: There were no complications. IMPRESSIONS: 1. Small internal and external hemorrhoids 2. Intubation to cecum RECOMMENDATIONS: 1. hemorrhoidal hygiene 2. Meckel's scan 3. Small Bowel Follow Through 4. pillcam / capsule endoscopy RECALL: for Colonoscopy at 51 [address] eSigned: Feroz Dodson Dr 05/21/2018 1:00 PM cc: CPT CODES: ICD9 CODES: 455.5 External hemorrhoids with other complication PATIENT NAME: CristalRamirez anthony MR#: [id number]
--- NOTE | 2018-05-23 21:03 | ENDO RPT ---
[address], [address] EGD PROCEDURE REPORT EXAM DATE: 05/21/2018 PATIENT NAME: Ramirez Bee MR#: [id number] BIRTHDATE: 1980 ATTENDING: Feroz Dodson Dr STATUS: inpatient - [facility] ENROLLER: Krystal Madrid and Naomi Olsen RN INDICATIONS: The patient is a 37 yr old Male here for an EGD due to upper G.I. bleeding and hematemesis PROCEDURE PERFORMED: EGD with biopsy MEDICATIONS: Per Anesthesia. TOPICAL ANESTHETIC: none CONSENT: The patient understands the risks and benefits of the procedure and understands that these risks include, but are not limited to: sedation, allergic reaction, infection, perforation and/or bleeding. Alternative means of evaluation and treatment include, among others: physical exam, x-rays, and/or surgical intervention. The patient elects to proceed with this endoscopic procedure. DESCRIPTION OF PROCEDURE: During intra-op preparation period all mechanical medical equipment was checked for proper function. Hand hygiene and appropriate measures for infection prevention was taken. Procedure, possible complications, and alternatives including but not limited to the possibility of bleeding, perforation, tear, infection, sepsis, need for surgery, need for blood transfusion, and anesthesia related complications were explained to the patient. After the risks, benefits and alternatives of the procedure were thoroughly explained, Informed consent was verified, confirmed and timeout was successfully executed by the treatment team. The patient was placed in the left lateral position. The patient was anesthetized with topical anesthesia. Through the anesthetized oropharyngeal area, the scope was passed without any difficulty. The [id number] ([id number]) endoscope was introduced through the mouth and advanced to the second portion of the duodenum. Retroflexed views revealed a moderate sized hiatal hernia. The gastroscope was then slowly withdrawn and removed. A moderate sized hiatal hernia was found Mild gastritis was found in the body and the antrum of the stomach. Multiple biopsies were obtained and sent to pathology. ADVERSE EVENTS: There were no complications. IMPRESSIONS: 1. Moderate sized hiatal hernia 2. Mild gastritis in the body and the antrum of the stomach, s/p biopsies RECOMMENDATIONS: 1. await biopsy results 2. acid suppression therapy REPEAT EXAM: Feroz Dodson Dr eSigned: Feroz Dodson Dr 05/21/2018 12:40 PM cc: CPT CODES: ICD9 CODES: PATIENT NAME: Cristal Ramirezruperto Valerio MR#: [id number]
[2018-05-27 19:52] LABS: HBsAG Nonreactive (Nonreactive); Hepatitis A IgM Antibody Nonreactive
== END 2018-05-22 16:04 | disposition home or self-care (01) | DRG 379 ==
LOC: ER 18:53 → ERHOLD 05-20 00:03 → 4TH 05-20 00:31
PROVIDERS: ADMIT Hospitalist; ATTEND Family Medicine
PROC: 0DJD8ZZ Inspection of Lower Intestinal Tract, Via Natural or Artificial Opening Endoscopic (ICD-10-PCS; 2018-05-21)
PROC: 0DB68ZX Excision of Stomach, Via Natural or Artificial Opening Endoscopic, Diagnostic (ICD-10-PCS; principal; 2018-05-21 12:00)
PROC: 0DB78ZX Excision of Stomach, Pylorus, Via Natural or Artificial Opening Endoscopic, Diagnostic (ICD-10-PCS; 2018-05-21 12:00)
DX: K92.2 Gastrointestinal hemorrhage, unspecified (principal); F17.210 Nicotine dependence, cigarettes, uncomplicated; R94.5 Abnormal results of liver function studies; K29.70 Gastritis, unspecified, without bleeding; K44.9 Diaphragmatic hernia without obstruction or gangrene; F10.20 Alcohol dependence, uncomplicated; K76.0 Fatty (change of) liver, not elsewhere classified; K64.4 Residual hemorrhoidal skin tags; K64.8 Other hemorrhoids
CPT/HCPCS: 36415; 74177; 74250; 76705; 78290; 80048; 80053; 80074; 80076; 80307; 81001; 81003; 82272; 82728; 83036; 83540; 83615; 83690; 83735; 84100; 84443; 84466; 85014; 85018; 85025; 85044; 85610; 85652; 85730; 86140; 86255; 86850; 86900; 86901; 88305; 88312; 99285; A9512; C9113; J2001; J2175; J2250; J2270; J2405; J2704; J2765; J7030; Q9967

== ENCOUNTER 2020-02-24 15:25 | Emergency (ER) | payer SELFPAY ==
--- OUTSIDE RECORDS SUMMARY | 2020-02-24 15:28 | XMS REPORT | Continuity of Care Document ---
:1980 Author Organization [facility] t Address [address] [place] [address] Care Team Providers Name Role Phone Unavailable Unavailable Unavailable Payers Payer Name Policy Type Policy Number Effective Date Expiration Date S ource Problems This patient has no known problems. Allergies, Adverse Reactions, Alerts Allergy Allergy Status Severity Reaction(s) Onset Inactive Treating Comm ents Source Name Type Date Date Clinician No Known DA Active U [facility] Allergie 6-10 Clear s 00:00: Johnson [address] [place] [address] Medications This patient has no known medications. Procedures This patient has no known procedures. Encounters Start End Encounter Admission Attending Care Care Encounter Source Date/Time Date/Time Type Type Clinicians Facility Department ID 2019-05-11 2019-05-11 Emergency E [facility] [id number] [facility] 08:54:00 08:54:00 Results Test Description Test Time Test Comments Results Result Comments Source ANTINUCLEAR ANTIBODIES TITER 2018-08-12 12:09:00 Test Item Value Reference Range Interpretation Comme nts NILO SCREEN (test code = ANASCR) Negative () Negative <1:8 0 David rderline 1:80 Positive >1:80Performed At: [facility] [address] [place], [place] [id number] Preston Villasenor MD Ph:[phone] AB [id number] 12:09:00 Test Item Value Reference Range Interpretation Comments AB <20.0 Units 0.0-20.0 ANTI-MITOCHONDRIAL Ne gative 0.0 - (test code = 20.0 MITOAB) Equi vocal 20.1 - 24.9 Positive >24.9Mitochondr ial (M2) Antibodies are found in 90-96% ofpatien ts with primary biliary cirrhosis.Perfo rmed At: [address] [id number] ra Arron GERMAIN Ph:[phone] AB ANTI-SMOOTH [id number] 12:09:00 Test Item Value Reference Range Interpretation Comments AB ANTI-SMOOTH MUSCLE 6 Units 0-19 Negative (test code = 0 - SMOOTHAB) 19 Weak positive 20 - 30 Moderate to str ana positive >3 0 Actin Antibodies are found in 52-85% of patie nts with autoimmune hepa titis or chronic active hepatitis and in 22% of p atients with primary bi liary cirrhosis. AB LIVER-KIDNEY [id number] 12:09:00 Test Item Value Reference Range Interpretation Comments AB LIVER-KIDNEY 1.2 Units 0.0-20.0 MICROSOMAL (test Nega tive 0.0 - code = MICRLKAB) 20.0 Equi vocal 20.1 - 24.9 Positive >24.9LKM type 1 antibodies are detected in patients withautoimmune hepatitis type 2 and in u p to 8% ofpatients with chronic HCV infection.P erformed At: [address] [id number] ra Arron GERMAIN Ph:[phone] HEMOCHROMATOSIS DNA MUT [id number] 09:13:00 Test Item Value Reference Range Interpretation Comments C282Y MAJOR NOT DETECTED NotDetected HFE MUTATION (test code = C282Y) H63D DETECTED NotDetected Result: CARRIER 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 MUTATION Interpretation: This patient's (test code = sample was anal yzed for the H63D) hereditaryhemoc hromatosis (HH) mutations C282Y , H63D, and S65C.A single c opyof H63D was identified. Res ults for C282Y and S65C were n egative.This person is most likely an unaffected villeda ier. Approximately 1 in 9 Caucasians are carriers of HH. [facility]. Becausesola watts does not identify rare H H mutations or HHmutations fou nd in other ethnicgroups, t here are a smallnumber of people who may have a single c opy of H63D who areactually aff ected. The diagnosis of HH shouldinclude clinical findin gs and other test results, s uch astransferrin-i jaylen saturation and/or serum fe rritin studiesand/or l iver biopsy. HH is inherited in a recessive manner. Should this individual have children w ith a partner who is also a c arrier for HH, there is a 25% chance per offspring that he/she is affected. Gene tic counseling and HH molecula r testing are recommended for at-risk family members. Method ology:DNA Analysis of the HFE gene was performed by PC R amplification followed by res triction enzymedigestion analyses. Reference:Eden lamas JS and Phillip FATIMA. (2000). Gen et Test 4:97-101.Jose MARTIN et al. (1999). AM J Pr ev Med 16:134-140.Bomf ord A (2002). Lancet 360(4272 ):1673-81.Lela Jimenez et al. ( 2002). Blood Cells, Molecule s. and Diseases. 29(3):418-432.I marya Mcgee et al. (2003). Gen et Med. 5(1):1-8.Jose MARTIN et al. (2003). Aaliyah M ed. 5(4):304-10 Please Note: Th is test was developed and i ts performance characteristics determinedby [facility]. It has not been cleared or appr eleanor bythe Food and Drug Admini stration. Genetic business and financial counsel ors are available for [facility] care providers to pancho arellano at [phone]. Anand Cifuentes, PhD, Jose R Tello, PhD, FA Luis Felipe Lan M.S., P hD, Kal Phillips, PhD, FA Anh Clayton, PhD, Denise Boggs PhD, [facility] ANTINUCLEAR ANTIBODIES [id number] 14:09:00 Test Item Value Reference Range Interpretation Comments NILO SCREEN (test code Negative () = ANASCR) Neg ative <1:80 Borderline 1:8 0 Positive >1:80Performed At: [facility] [address] [id number] blaise Villasenor MD Ph:[phone] AB [id number] 14:09:00 Test Item Value Reference Range Interpretation Comments AB ANTI-MITOCHONDRIAL (test code = MITOAB) AB ANTI-SMOOTH [id number] 14:09:00 Test Item Value Reference Range Interpretation Comments AB ANTI-SMOOTH MUSCLE 6 Units 0-19 Negative (test code = 0 - SMOOTHAB) 19 Weak positive 20 - 30 Moderate to str ana positive >3 0 Actin Antibodies are found in 52-85% of patie nts with autoimmune hepa titis or chronic active hepatitis and in 22% of p atients with primary bi liary cirrhosis. AB LIVER-KIDNEY [id number] 14:09:00 Test Item Value Reference Range Interpretation Comments AB LIVER-KIDNEY MICROSOMAL (test code = MICRLKAB) ANTINUCLEAR ANTIBODIES [id number] 14:09:00 Test Item Value Reference Range Interpretation Comments NILO SCREEN (test code Negative () = ANASCR) Neg ative <1:80 Borderline 1:8 0 Positive >1:80Performed At: [facility] [address] [id number] blaise Villasenor MD Ph:[phone] AB [id number] 14:09:00 Test Item Value Reference Range Interpretation Comments AB <20.0 Units 0.0-20.0 ANTI-MITOCHONDRIAL Ne gative 0.0 - (test code = 20.0 MITOAB) Equi vocal 20.1 - 24.9 Positive >24.9Mitochondr ial (M2) Antibodies are found in 90-96% ofpatien ts with primary biliary cirrhosis.Perfo rmed At: [facility] [address] [id number] ra Arron GERMAIN Ph:[phone] AB ANTI-SMOOTH [id number] 14:09:00 Test Item Value Reference Range Interpretation Comments AB ANTI-SMOOTH MUSCLE 6 Units 0-19 Negative (test code = 0 - SMOOTHAB) 19 Weak positive 20 - 30 Moderate to str ana positive >3 0 Actin Antibodies are found in 52-85% of patie nts with autoimmune hepa titis or chronic active hepatitis and in 22% of p atients with primary bi liary cirrhosis. AB LIVER-KIDNEY [id number] 14:09:00 Test Item Value Reference Range Interpretation Comments AB LIVER-KIDNEY MICROSOMAL (test code = MICRLKAB) TOTAL IRON BINDING [id number] 15:14:00 Test Item Value Reference Range Interpretation Comments SERUM IRON (test code = IRON) 192 mcg/dL 35-150 H TOTAL IRON BINDING CAPACITY (test 227 mcg/dL 260-445 L code = TIBC) UIBC (test code = UIBC) 35 mcg/dL IRON SATURATION (test code = 84.6 % 14-34 H FESAT) ALPHA 1 [id number] 15:14:00 Test Item Value Reference Range Interpretation Comments ALPHA 1 ANTITRYPSIN (test code = [id number]) [id number] 15:14:00 Test Item Value Reference Range Interpretation Comments CERULOPLASMIN (test code = CER) 14.2 mg/dL 16.0-31.0 A [id number] 15:14:00 Test Item Value Reference Range Interpretation Comments FERRITIN (test code = CLEOPATRA) 1605.5 ng/mL 23.9-336.2 H TOTAL IRON BINDING [id number] 15:14:00 Test Item Value Reference Range Interpretation Comments SERUM IRON (test code = IRON) 192 mcg/dL 35-150 H TOTAL IRON BINDING CAPACITY (test 227 mcg/dL 260-445 L code = TIBC) UIBC (test code = UIBC) 35 mcg/dL IRON SATURATION (test code = 84.6 % 14-34 H FESAT) ALPHA 1 [id number] 15:14:00 Test Item Value Reference Range Interpretation Comments ALPHA 1 ANTITRYPSIN 127 mg/dL 90-200 Performe d At: DA (test code = SQRX4ILE) [facility] [address] [place], [place] [id number] h CN MD Ph:[phone] [id number] 15:14:00 Test Item Value Reference Range Interpretation Comments CERULOPLASMIN (test code = CER) 14.2 mg/dL 16.0-31.0 A [id number] 15:14:00 Test Item Value Reference Range Interpretation Comments FERRITIN (test code = CLEOPATRA) 1605.5 ng/mL 23.9-336.2 H ANTINUCLEAR ANTIBODIES [id number] 12:11:00 Test Item Value Reference Range Interpretation Comments NILO SCREEN (test code Negative () = ANASCR) Neg ative <1:80 Borderline 1:8 0 Positive >1:80Performed At: [facility] [id number] [place], [place] [id number] blaise Villasenor MD Ph:[phone] AB [id number] 12:11:00 Test Item Value Reference Range Interpretation Comments AB ANTI-MITOCHONDRIAL (test code = MITOAB) AB ANTI-SMOOTH [id number] 12:11:00 Test Item Value Reference Range Interpretation Comments AB ANTI-SMOOTH MUSCLE (test code = SMOOTHAB) AB LIVER-KIDNEY [id number] 12:11:00 Test Item Value Reference Range Interpretation Comments AB LIVER-KIDNEY MICROSOMAL (test code = MICRLKAB) BASIC METABOLIC [id number] 08:23:00 Test Item Value Reference Range Interpretation Comments SODIUM (test code = NA) 138 mEq/L 134-147 N POTASSIUM (test code = 3.7 mEq/L 3.4-5.0 N K) CHLORIDE (test code = 106 mEq/L 100-108 N CL) CARBON DIOXIDE (test 24 mEq/L 21-33 N code = CO2) ANION GAP (test code = 12 0-20 N GAP) GLUCOSE (test code = 119 mg/dL 70-110 H GLU) BLOOD UREA NITROGEN 9 mg/dL 7-18 N (test code = BUN) GLOMERULAR FILTRATION 109.4 105-110 N Units of measure = RATE (test code = GFR) ml/mi n/1.73 m2 CREATININE (test code = 0.8 mg/dL 0.6-1.3 N CREAT) CALCIUM (test code = 8.1 mg/dL 8.0-10.5 N CA) HEPATIC FUNCTION [id number] 08:23:00 Test Item Value Reference Range Interpretation Comments TOTAL PROTEIN (test code = PROT) 6.4 g/dL 6.4-8.2 N ALBUMIN (test code = ALB) 3.00 g/dL 3.4-5.0 L BILIRUBIN TOTAL (test code = 0.60 mg/dL 0.0-1.0 N BILT) BILIRUBIN DIRECT (test code = 0.10 MG/DL 0.0-0.30 BILD) BILIRUBIN INDIRECT (test code = 0.50 MG/DL BILIND) SGOT/AST (test code = AST) 123 IUnit/L 15-37 H SGPT/ALT (test code = ALT) 199 IUnit/L 15-65 H ALKALINE PHOSPHATASE TOTAL (test 110 IUnit/L 20-125 N code = ALKP) CBC W/AUTO [id number] 07:49:00 Test Item Value Reference Range Interpretation Comments WHITE BLOOD CELL (test code = 5.08 x10 3/uL 4.5-11.0 N WBC) RED BLOOD CELL (test code = 4.29 x10 6/uL 4.00-5.60 N RBC) HEMOGLOBIN (test code = HGB) 14.4 g/dL 12.5-16.9 N HEMATOCRIT (test code = HCT) 42.0 % 37.5-50.7 N MEAN CELL VOLUME (test code = 97.9 fL 81.0-99.0 N MCV) MEAN CELL HGB (test code = MCH) 33.6 pg 27.0-33.0 H MEAN CELL HGB CONCETRATION 34.3 g/dL 33.0-37.0 N (test code = MCHC) RED CELL DISTRIBUTION WIDTH CV 12.9 % 11.5-14.5 N (test code = RDW) RED CELL DISTRIBUTION WIDTH SD 45.8 fL 37.0-54.0 N (test code = RDW-SD) PLATELET COUNT (test code = 140 x10 3/uL 150-400 L PLT) MEAN PLATELET VOLUME (test code 11.3 fL 7.0-9.0 H = MPV) NEUTROPHIL % (test code = NT%) 48.4 % 56.0-77.0 L IMMATURE GRANULOCYTE % (test 1.0 % 0.0-2.0 N code = IG%) LYMPHOCYTE % (test code = LY%) 34.1 % 14.0-32.0 H MONOCYTE % (test code = MO%) 10.4 % 4.8-9.0 H EOSINOPHIL % (test code = EO%) 5.1 % 0.3-3.7 H BASOPHIL % (test code = BA%) 1.0 % 0.0-2.0 N NUCLEATED RBC % (test code = 0.0 % 0-0 N NRBC%) NEUTROPHIL # (test code = NT#) 2.46 x10 3/uL 2.0-7.6 N IMMATURE GRANULOCYTE # (test 0.05 x10 3/uL 0.00-0.03 H code = IG#) LYMPHOCYTE # (test code = LY#) 1.73 x10 3/uL 1.0-3.8 N MONOCYTE # (test code = MO#) 0.53 x10 3/uL 0.1-0.8 N EOSINOPHIL # (test code = EO#) 0.26 x10 3/uL 0.0-0.2 H BASOPHIL # (test code = BA#) 0.05 x10 3/uL 0.0-0.2 N NUCLEATED RBC # (test code = 0.00 x10 3/uL 0.0-0.1 N NRBC#) MANUAL DIFF REQUIRED (test code NO = MDIFF) CBC W/AUTO [id number] 07:37:00 Test Item Value Reference Range Interpretation Comments WHITE BLOOD CELL (test code = 4.16 x10 3/uL 4.5-11.0 L WBC) RED BLOOD CELL (test code = 4.08 x10 6/uL 4.00-5.60 N RBC) HEMOGLOBIN (test code = HGB) 13.6 g/dL 12.5-16.9 N HEMATOCRIT (test code = HCT) 39.6 % 37.5-50.7 N MEAN CELL VOLUME (test code = 97.1 fL 81.0-99.0 N MCV) MEAN CELL HGB (test code = MCH) 33.3 pg 27.0-33.0 H MEAN CELL HGB CONCETRATION 34.3 g/dL 33.0-37.0 N (test code = MCHC) RED CELL DISTRIBUTION WIDTH CV 12.6 % 11.5-14.5 N (test code = RDW) RED CELL DISTRIBUTION WIDTH SD 45.6 fL 37.0-54.0 N (test code = RDW-SD) PLATELET COUNT (test code = 140 x10 3/uL 150-400 L PLT) MEAN PLATELET VOLUME (test code 11.0 fL 7.0-9.0 H = MPV) NEUTROPHIL % (test code = NT%) 45.4 % 56.0-77.0 L IMMATURE GRANULOCYTE % (test 0.5 % 0.0-2.0 N code = IG%) LYMPHOCYTE % (test code = LY%) 37.5 % 14.0-32.0 H MONOCYTE % (test code = MO%) 10.8 % 4.8-9.0 H EOSINOPHIL % (test code = EO%) 4.8 % 0.3-3.7 H BASOPHIL % (test code = BA%) 1.0 % 0.0-2.0 N NUCLEATED RBC % (test code = 0.0 % 0-0 N NRBC%) NEUTROPHIL # (test code = NT#) 1.89 x10 3/uL 2.0-7.6 L IMMATURE GRANULOCYTE # (test 0.02 x10 3/uL 0.00-0.03 N code = IG#) LYMPHOCYTE # (test code = LY#) 1.56 x10 3/uL 1.0-3.8 N MONOCYTE # (test code = MO#) 0.45 x10 3/uL 0.1-0.8 N EOSINOPHIL # (test code = EO#) 0.20 x10 3/uL 0.0-0.2 N BASOPHIL # (test code = BA#) 0.04 x10 3/uL 0.0-0.2 N NUCLEATED RBC # (test code = 0.00 x10 3/uL 0.0-0.1 N NRBC#) MANUAL DIFF REQUIRED (test code NO = MDIFF) BASIC METABOLIC [id number] 07:27:00 Test Item Value Reference Range Interpretation Comments SODIUM (test code = NA) 139 mEq/L 134-147 N POTASSIUM (test code = 3.4 mEq/L 3.4-5.0 N K) CHLORIDE (test code = 104 mEq/L 100-108 N CL) CARBON DIOXIDE (test 27 mEq/L 21-33 N code = CO2) ANION GAP (test code = 11 0-20 N GAP) GLUCOSE (test code = 126 mg/dL 70-110 H GLU) BLOOD UREA NITROGEN 8 mg/dL 7-18 (test code = BUN) GLOMERULAR FILTRATION 95.5 105-110 L Units of measure = RATE (test code = GFR) ml/mi n/1.73 m2 CREATININE (test code = 0.9 mg/dL 0.6-1.3 N CREAT) CALCIUM (test code = 8.2 mg/dL 8.0-10.5 N CA) HEPATIC FUNCTION [id number] 07:27:00 Test Item Value Reference Range Interpretation Comments TOTAL PROTEIN (test code = PROT) 6.0 g/dL 6.4-8.2 L ALBUMIN (test code = ALB) 2.80 g/dL 3.4-5.0 L BILIRUBIN TOTAL (test code = 0.80 mg/dL 0.0-1.0 BILT) BILIRUBIN DIRECT (test code = 0.20 MG/DL 0.0-0.30 BILD) BILIRUBIN INDIRECT (test code = 0.60 MG/DL BILIND) SGOT/AST (test code = AST) 150 IUnit/L 15-37 H SGPT/ALT (test code = ALT) 213 IUnit/L 15-65 H ALKALINE PHOSPHATASE TOTAL (test 119 IUnit/L 20-125 N code = ALKP) TOTAL IRON BINDING [id number] 16:29:00 Test Item Value Reference Range Interpretation Comments SERUM IRON (test code = IRON) 192 mcg/dL 35-150 H TOTAL IRON BINDING CAPACITY (test 227 mcg/dL 260-445 L code = TIBC) UIBC (test code = UIBC) 35 mcg/dL IRON SATURATION (test code = 84.6 % 14-34 H FESAT) ALPHA 1 [id number] 16:29:00 Test Item Value Reference Range Interpretation Comments ALPHA 1 ANTITRYPSIN (test code = [id number]) [id number] 16:29:00 Test Item Value Reference Range Interpretation Comments CERULOPLASMIN (test code = CER) [id number] 16:29:00 Test Item Value Reference Range Interpretation Comments FERRITIN (test code = CLEOPATRA) 1605.5 ng/mL 23.9-336.2 H - US ABDOMEN [id number] 15:39:00 Name: LILLY MENON : 1980 Age/S: 37 / M [address] [place] [address] Unit #: [id number] Loc: [place] [id number] Phys: Radha Campos MD Acct: [id number] Dis Date: Status: ADM IN PHONE #: [phone] Exam Date: 08/06/20181512 FAX #: [phone] Reason: ABDOMINAL PAIN, HEPATITIS EXAMS: CPTCODE: [id number] US ABDOMEN COMPLETE [id number] PROCEDURE: ABDOMINAL ULTRASOUND INDICATION: Abdominal pain, hepatitis COMPARISON: None TECHNIQUE: Sonographic evaluation of the abdomen was performed with supplemental color and pulsed Doppler. FINDINGS: LIVER: There is increased echogenicity throughout the liver. GALLBLADDER: There are no gallstones, sludge, pericholecystic fluidor wall thickening. BILE DUCTS: The common duct measures 3 mm. PANCREAS: Mostly obscured by bowel gas SPLEEN: Mostly obscured by bowel gas KIDNEYS: The right kidney measures 10.7 cm in length. Normal contour and parenchymal echogenicity. There is no hydronephrosis, nephrolithiasis, mass lesion or perinephric collection. The left kidney measures 10.7 cm in length. Normal contour and parenchymal echogenicity. There is no hydronephrosis, nephrolithiasis, mass lesion or perinephric collection. AORTA AND INFERIOR VENA CAVA: Visualized portions appear normal. Additional comments: None. IMPRESSION: 1. Fatty infiltration of liver. 2.No cholelithiasis, cholecystitis, or ductal dilatation. 3. Limited visualization of pancreas and spleen. SL: [id number] PAGE 1 Signed Report (CONTINUED) Name: LILLY MENON : 1980 Age/S: 37 / M [address] [place] [address] Unit #: [id number] Loc: [place] [address] Phys: Radha Campos MD Acct: [id number] Dis Date: Status: ADM IN PHONE #: [phone] Exam Date: 08/06/20181512 FAX #: [phone] Reason: ABDOMINAL PAIN, HEPATITIS EXAMS: CPT CODE: [id number] US ABDOMEN COMPLETE 35411 <Continued> at 1539 Reported and signed by: Brodie Suggs M.D. CC: Radha Campos MD Technologist: Tia Kaur RDMS (A)(CORI) Trnscb Date/Time:08/06/2018 (1539) [id number] Orig Print D/T: S: 08/06/2018 (5702) Probe: PAGE 2 Signed ReportACUTE HEPATITIS [id number] 12:48:00 Test Item Value Reference Range Interpretation Comments AB HEPATITIS A IGM (test NON REACTIVE INDEX NON REACT. code = HAVMAB) AG HEPATITIS B SURFACE NON REACTIVE INDEX NonReactive (test code = HBSAG) AB HEPATITIS B CORE IGM NON REACTIVE INDEX NON REACT. (test code = HBCMAB) AB HEPATITIS C (test code NON REACTIVE INDEX NON REACT. = HCVAB) ACUTE HEPATITIS [id number] 12:13:00 Test Item Value Reference Range Interpretation Comments AB HEPATITIS A IGM (test INDEX NON REACT. code = HAVMAB) AG HEPATITIS B SURFACE NON REACTIVE INDEX NonReactive (test code = HBSAG) AB HEPATITIS B CORE IGM INDEX NON REACT. (test code = HBCMAB) AB HEPATITIS C (test code INDEX NON REACT. = HCVAB) HEPATIC FUNCTION [id number] 09:35:00 Test Item Value Reference Range Interpretation Comments TOTAL PROTEIN (test code = PROT) 6.1 g/dL 6.4-8.2 L ALBUMIN (test code = ALB) 2.90 g/dL 3.4-5.0 L BILIRUBIN TOTAL (test code = 1.70 mg/dL 0.0-1.0 H BILT) BILIRUBIN DIRECT (test code = 0.30 MG/DL 0.0-0.30 N BILD) BILIRUBIN INDIRECT (test code = 1.40 MG/DL BILIND) SGOT/AST (test code = AST) 196 IUnit/L 15-37 H SGPT/ALT (test code = ALT) 246 IUnit/L 15-65 H ALKALINE PHOSPHATASE TOTAL (test 127 IUnit/L 20-125 H code = ALKP) BASIC METABOLIC [id number] 08:28:00 Test Item Value Reference Range Interpretation Comments SODIUM (test code = NA) 138 mEq/L 134-147 N POTASSIUM (test code = 3.8 mEq/L 3.4-5.0 N K) CHLORIDE (test code = 104 mEq/L 100-108 N CL) CARBON DIOXIDE (test 27 mEq/L 21-33 code = CO2) ANION GAP (test code = 11 0-20 N GAP) GLUCOSE (test code = 87 mg/dL 70-110 N GLU) BLOOD UREA NITROGEN 5 mg/dL 7-18 L (test code = BUN) GLOMERULAR FILTRATION 95.5 105-110 L Units of measure = RATE (test code = GFR) ml/mi n/1.73 m2 CREATININE (test code = 0.9 mg/dL 0.6-1.3 N CREAT) CALCIUM (test code = 8.2 mg/dL 8.0-10.5 N CA) [id number] 08:28:00 Test Item Value Reference Range Interpretation Comments AMYLASE (test code = SERGIO) 50 UNITS/L 25-115 N [id number] 08:28:00 Test Item Value Reference Range Interpretation Comments LIPASE (test code = LIP) 102 IUnit/L 73-393 N CBC W/AUTO [id number] 07:53:00 Test Item Value Reference Range Interpretation Comments WHITE BLOOD CELL (test code = 3.70 x10 3/uL 4.5-11.0 L WBC) RED BLOOD CELL (test code = 4.20 x10 6/uL 4.00-5.60 N RBC) HEMOGLOBIN (test code = HGB) 13.9 g/dL 12.5-16.9 N HEMATOCRIT (test code = HCT) 39.8 % 37.5-50.7 N MEAN CELL VOLUME (test code = 94.8 fL 81.0-99.0 N MCV) MEAN CELL HGB (test code = MCH) 33.1 pg 27.0-33.0 H MEAN CELL HGB CONCETRATION 34.9 g/dL 33.0-37.0 N (test code = MCHC) RED CELL DISTRIBUTION WIDTH CV 12.3 % 11.5-14.5 N (test code = RDW) RED CELL DISTRIBUTION WIDTH SD 42.6 fL 37.0-54.0 N (test code = RDW-SD) PLATELET COUNT (test code = 147 x10 3/uL 150-400 L PLT) MEAN PLATELET VOLUME (test code 10.9 fL 7.0-9.0 H = MPV) NEUTROPHIL % (test code = NT%) 33.7 % 56.0-77.0 L IMMATURE GRANULOCYTE % (test 0.3 % 0.0-2.0 N code = IG%) LYMPHOCYTE % (test code = LY%) 46.5 % 14.0-32.0 H MONOCYTE % (test code = MO%) 13.5 % 4.8-9.0 H EOSINOPHIL % (test code = EO%) 4.9 % 0.3-3.7 H BASOPHIL % (test code = BA%) 1.1 % 0.0-2.0 N NUCLEATED RBC % (test code = 0.0 % 0-0 N NRBC%) NEUTROPHIL # (test code = NT#) 1.25 x10 3/uL 2.0-7.6 L IMMATURE GRANULOCYTE # (test 0.01 x10 3/uL 0.00-0.03 N code = IG#) LYMPHOCYTE # (test code = LY#) 1.72 x10 3/uL 1.0-3.8 N MONOCYTE # (test code = MO#) 0.50 x10 3/uL 0.1-0.8 N EOSINOPHIL # (test code = EO#) 0.18 x10 3/uL 0.0-0.2 N BASOPHIL # (test code = BA#) 0.04 x10 3/uL 0.0-0.2 N NUCLEATED RBC # (test code = 0.00 x10 3/uL 0.0-0.1 N NRBC#) MANUAL DIFF REQUIRED (test code NO = MDIFF) BASIC METABOLIC [id number] 02:05:00 Test Item Value Reference Range Interpretation Comments SODIUM (test code = NA) 137 mEq/L 134-147 N POTASSIUM (test code = 3.8 mEq/L 3.4-5.0 N K) CHLORIDE (test code = 107 mEq/L 100-108 N CL) CARBON DIOXIDE (test 19 mEq/L 21-33 L code = CO2) ANION GAP (test code = 15 0-20 N GAP) GLUCOSE (test code = 78 mg/dL 70-110 N GLU) BLOOD UREA NITROGEN 9 mg/dL 7-18 N (test code = BUN) GLOMERULAR FILTRATION 84.5 105-110 L Units of measure = RATE (test code = GFR) ml/mi n/1.73 m2 CREATININE (test code = 1.0 mg/dL 0.6-1.3 N CREAT) CALCIUM (test code = 6.9 mg/dL 8.0-10.5 L CA) LIPID PROFILE (CORONARY RISK)2018-08-05 02:05:00 Test Item Value Reference Range Interpretation Comments TRIGLYCERIDES (test 774 mg/dL 40-150 H code = TRIG) CHOLESTEROL (test 127 mg/dL <200 code = CHOL) CHOLESTEROL/HDL 8.47 RATIO 3.43-4.97 H RISK ASSOCIA ANGEL LUIS WITH RATIO (test code = CHOL/HDL RATIOS: RISK CHOLHDL) MALE FEMALE1/2 AVERA GE 3.43 3.27AVERAGE 4.97 4.4 43X AVERAGE 9.55 7.053X AVER AGE 23.39 1 1.04 NOTE THAT THE R EFERENCE VALUE IS RELATE DTO RISK LEVELS RECOM MENDED BY THE NATL.HEA RT, LUNG, AND BLOOD INST. HDL CHOLESTEROL 15.0 mg/dL 32-72 L (test code = HDL) LIPOPROTEIN LDL 23 mg/dL 0-100 N <100 OPT [id number] (test code = LDL) NEAR OPTI MAL/ABOVE [id number] HIGH>JL=847 VE RY HIGH*Guidelines provided by the National [employer] ter[employer] m Adult Treatment Panel III HGBA1C%2018-08-05 02:05:00 Test Item Value Reference Range Interpretation Comments HGBA1C% (test code = HGBA1C%) 5.2 %A1C 4.8-6.0 N CBC W/AUTO [id number] 01:52:00 Test Item Value Reference Range Interpretation Comments WHITE BLOOD CELL (test code = 5.32 x10 3/uL 4.5-11.0 N WBC) RED BLOOD CELL (test code = 3.87 x10 6/uL 4.00-5.60 L RBC) HEMOGLOBIN (test code = HGB) 12.8 g/dL 12.5-16.9 HEMATOCRIT (test code = HCT) 37.6 % 37.5-50.7 N MEAN CELL VOLUME (test code = 97.2 fL 81.0-99.0 N MCV) MEAN CELL HGB (test code = MCH) 33.1 pg 27.0-33.0 H MEAN CELL HGB CONCETRATION 34.0 g/dL 33.0-37.0 N (test code = MCHC) RED CELL DISTRIBUTION WIDTH CV 13.2 % 11.5-14.5 N (test code = RDW) RED CELL DISTRIBUTION WIDTH SD 46.6 fL 37.0-54.0 N (test code = RDW-SD) PLATELET COUNT (test code = 147 x10 3/uL 150-400 L PLT) MEAN PLATELET VOLUME (test code 10.4 fL 7.0-9.0 H = MPV) NEUTROPHIL % (test code = NT%) 51.5 % 56.0-77.0 L IMMATURE GRANULOCYTE % (test 0.4 % 0.0-2.0 N code = IG%) LYMPHOCYTE % (test code = LY%) 35.2 % 14.0-32.0 H MONOCYTE % (test code = MO%) 9.0 % 4.8-9.0 N EOSINOPHIL % (test code = EO%) 3.0 % 0.3-3.7 N BASOPHIL % (test code = BA%) 0.9 % 0.0-2.0 N NUCLEATED RBC % (test code = 0.0 % 0-0 N NRBC%) NEUTROPHIL # (test code = NT#) 2.74 x10 3/uL 2.0-7.6 N IMMATURE GRANULOCYTE # (test 0.02 x10 3/uL 0.00-0.03 N code = IG#) LYMPHOCYTE # (test code = LY#) 1.87 x10 3/uL 1.0-3.8 N MONOCYTE # (test code = MO#) 0.48 x10 3/uL 0.1-0.8 N EOSINOPHIL # (test code = EO#) 0.16 x10 3/uL 0.0-0.2 N BASOPHIL # (test code = BA#) 0.05 x10 3/uL 0.0-0.2 N NUCLEATED RBC # (test code = 0.00 x10 3/uL 0.0-0.1 N NRBC#) MANUAL DIFF REQUIRED (test code NO = MDIFF) [id number] 23:05:00 Test Item Value Reference Range Interpretation Comments TROPONIN-I 0.022 ng/mL 0.000-0.045 N Negative: <= (test code = 0.045 Positive: TROPI) >= 0.046 Correl ation with serial results, other cardiac markers andclin ical findings is necessary to determine the clinicalsignifi cance of this result. Results using different metho dologies should not be c omparedto one another as phillip titative results may jelena y by method. COMMENTS: 3 troponins total (including troponin done in ED)URINALYSIS COMPLETE 2018-08-04 22:44:00 Test Item Value Reference Range Interpretation Comments UA COLOR (test code = COLU) RANDY YEL/STRAW A UA APPEARANCE (test code = CLEAR CLEAR APPU) UA GLUCOSE DIPSTICK (test code NEGATIVE NEGATIVE = DGLUU) UA BILIRUBIN DIPSTICK (test NEGATIVE NEGATIVE code = BILU) UA KETONE DIPSTICK (test code NEGATIVE NEGATIVE = KETU) UA SPECIFIC GRAVITY (test code 1.027 1.005-1.030 N = SGU) UA BLOOD DIPSTICK (test code = NEGATIVE NEGATIVE SUSI) UA PH DIPSTICK (test code = 5.0 5.0-7.0 N JONAS) UA PROTEIN DIPSTICK (test code NEGATIVE NEGATIVE = PROU) UA UROBILINIOGEN DIPSTICK 0.2 mg/dL 0.2-1.0 (test code = URO) UA NITRITE DIPSTICK (test code NEGATIVE NEGATIVE = KHOI) UA LEUKOCYTE ESTERASE DIPSTICK NEGATIVE NEGATIVE (test code = LEUU) UA WBC (test code = WBCU) 0-3 WBC/HPF 0-3 UA RBC (test code = RBCU) 0-3 RBC/HPF 0-3 UA BACTERIA (test code = BACU) TRACE /HPF NONE SEEN UA SQUAMOUS CELLS (test code = NONE SEEN /HPF NONE SEEN SQU) UA HYALINE CAST (test code = >20 /LPF NONE SEEN HYALU) UA MUCUS (test code = MUCU) 4+ /LPF NONE SEEN A COMMENTS: Clean CatchUA CULT [id number] 22:44:00 Test Item Value Reference Range Interpretation Comments UA CULTURE NEEDED? NO, WBC<10 Culture Chk Criteria not met, (test code = Criteria Urine Culture UACULT) cancelled. COMMENTS: Clean CatchCREATINE KINASE (CK)2018-08-04 19:54:00 Test Item Value Reference Range Interpretation Comments CREATINE KINASE (CK) 695 35-232 H Result is in INTERNATIONAL (test code = CK) UNITS/LITER COMMENTS: 3 troponins total (including troponin done in ED)[id number] 19:54:00 Test Item Value Reference Range Interpretation Comments TROPONIN-I 0.020 ng/mL 0.000-0.045 N Negative: <= (test code = 0.045 Positive: TROPI) >= 0.046 Correl ation with serial results, other cardiac markers andclin ical findings is necessary to determine the clinicalsignifi cance of this result. Results using different metho dologies should not be c omparedto one another as phillip titative results may jelena y by method. COMMENTS: 3 troponins total (including troponin done in ED)LACTIC ACID 2ND [id number] 17:47:00 Test Item Value Reference Range Interpretation Comments LACTIC ACID 2ND REPEAT (test code 3.3 mmol/L 0.4-1.9 H = LACT2) CREATINE KINASE (CK)2018-08-04 16:01:00 Test Item Value Reference Range Interpretation Comments CREATINE KINASE (CK) 512 35-232 H Result is in INTERNATIONAL (test code = CK) UNITS/LITER LACTIC ACID [id number] 15:13:00 Test Item Value Reference Range Interpretation Comments LACTIC ACID REPEAT (test code = 5.6 mmol/l 0.4-1.9 HH LACTR) - CT ABD PELVIS W/[id number] 14:48:00 Name: LILLY MENON [place] : 1980 Age/S: 37 / M [address] [place] [address] Unit #: [id number] Loc: [place], [place] Phys: Cody Bowden MD Acct: [id number] Dis Date: Status: REG ER PHONE #: [phone] Exam Date: 08/04/2018 1404 FAX #: [phone] Reason: ELEVATED LIVER ENZYMES EXAMS: CPTCODE: [id number] CT ABD PELVIS W/CONT 46407 Patient: LILLY MENON. : 1980; Age: 37 years; Gender: Male. MR: [id number]. Ordering physician: Cody Bowden MD. CT ANGIOGRAPHY CHEST WITH INTRAVENOUS CONTRAST: HISTORY: Pulmonary embolus, elevated liver enzymes, vomiting, chest pain. COMPARISON: None. FINDINGS: CT angiography of the chest was performed utilizing contiguous thin transaxial sections from the lung apices to the upper abdomen after the intravenous administration of 100 mL of Isovue-300 and utilizing the pulmonary emboli protocol. 3-D postprocessing MIP images were created. CT imaging was performed with exposure control parameters to reduce radiation dose. Total DLP: 1144.87 mGy-cm (includes DLP for CT body andabdomen performed immediately after CTA chest) Lungs are clear. There is no evidence of filling defects noted within the pulmonary arterial vasculature to indicate pulmonary emboli. All great vessels are normal in course and caliber. The heart is normal insize without evidence of pericardial effusion. Mild to moderate coronary atherosclerotic calcifications noted. There is no evidence of axillary, mediastinal or hilar lymphadenopathy. The chest wall is unremarkable. Small hiatal hernia noted. IMPRESSION: 1. No evidence of pulmonary emboli or other acute pathologyin the chest. 2. Moderate coronary atherosclerotic calcifications. 3. Small hiatal hernia. PAGE 1 Signed Report (CONTINUED) Name: LILLY MENON :1980 Age/S: 37 / M [address] [place] [address] Unit #: [id number] Loc: [place] [address] Phys: Cody Bowden MD Acct: [id number] Dis Date: Status: REG ER PHONE #: [phone] Exam Date: 08/04/2018 2783 FAX #: [phone] Reason: ELEVATED LIVER ENZYMES EXAMS: CPT CODE: [id number] CT ABD PELVIS W/CONT 83653 <Continued> PROCEDURE: CT ABDOMEN AND PELVIS WITH CONTRAST. INDICATION: Elevated liver enzymes, vomiting. COMPARISON: None. TECHNIQUE: Helical imaging was performed diaphragm through the symphysis with multiplanarreconstructions. CT imaging was performed with exposure control parameters to reduce radiati on dose. IV CONTRAST: 100 mL Isovue-300. Same dose given for CTA chest. GI CONTRAST: None. FINDINGS: LOWER CHEST: The lung bases are clear. Small hiatal hernia. SOLID ORGANS: Hepatic steatosis noted. Spleen, pancreas, gallbladder, kidneys and adrenal glands are unremarkable. BOWEL: The bowel is normal. PERITONEUM: No free intraperitoneal fluid or air. RETROPERITONEUM: No adenopathy. The aorta is normal. PELVIS: No pelvic mass. The urinary bladder is normal. MUSCULOSKELETAL: The skeleton is intact. IMPRESSION: 1. No acute pathology in the abdomen or pelvis. 2. Small hiatal hernia 3. Hepatic steatosis. SL: [id number] at 1448 Reported and signed by: Ayaan Vega M.D.PAGE 2 Signed Report (CONTINUED) Name: LILLY MENON : 1980 Age/S: 37 / M [address] [place] [address] Unit #: [id number] Loc: [place] [address] Phys: Cody Bowden MD Acct: [id number] Dis Date: Status: REG ER PHONE #: [phone] Exam Date: 08/04/2018 1404 FAX #: [phone] Reason: ELEVATED LIVER ENZYMES EXAMS: CPT CODE: [id number] CT ABD PELVIS W/CONT 27788 <Continued> CC: Cody Bowden MD Technologist:RT Kiran(R)(CT) CTDI: DLP: Trnscb Date/Time: 08/04/2018 (1448) [email or web address] Orig PrintD/T: S: 08/04/2018 (4652) PAGE 3 Signed Report- CTA CHEST FOR [id number] 14:48:00 Name: LILLY MENON : 1980 Age/S: 37 / M [address] [place] [address] Unit #: [id number] Loc: [place] [id number] Phys: Cody Bowden MD Acct: [id number] Dis Date: Status: REG ER PHONE #: [phone] Exam Date: 08/04/2018 1404 FAX #: [phone] Reason: concernfor PE EXAMS: CPTCODE: [id number] [place] [address] Patient: LILLY MENON. : 1980; Age: 37 years; Gender: Male. MR: [id number]. Ordering physician: Cody Bowden MD. CT ANGIOGRAPHY CHEST WITH INTRAVENOUS CONTRAST: HISTORY: Pulmonary embolus, elevated liver enzymes, vomiting, chest pain. COMPARISON: None. FINDINGS: CT angiography of the chest was performed utilizing contiguous thin transaxial sections from the lung apices to the upper abdomen after the intravenous administration of 100 mL of Isovue-300 and utilizing the pulmonary emboli protocol. 3-D postprocessing MIP images were created. CT imaging was performed with exposure control parameters to reduce radiation dose. Total DLP: 1144.87 mGy-cm (includes DLP for CT body andabdomen performed immediately after CTA chest) Lungs are clear. There is no evidence of filling defects noted within the pulmonary arterial vasculature to indicate pulmonary emboli. All great vessels are normal in course and caliber. The heart is normal insize without evidence of pericardial effusion. Mild to moderate coronary atherosclerotic calcifications noted. There is no evidence of axillary, mediastinal or hilar lymphadenopathy. The chest wall is unremarkable. Small hiatal hernia noted. IMPRESSION: 1. No evidence of pulmonary emboli or other acute pathologyin the chest. 2. Moderate coronary atherosclerotic calcifications. 3. Small hiatal hernia. PAGE 1 Signed Report (CONTINUED) Name: LILLY MENON [facility] [place] :1980 Age/S: 37 / M [address] [place] [address] Blvd Unit #: [id number] Loc: [place] [address] Phys: Cody Bowden MD Acct: [id number] Dis Date: Status: REG ER PHONE #: [phone] Exam Date: 08/04/2018 1299 FAX #: [phone] Reason: concern for PE EXAMS: CPT CODE: [id number] [place] [address] <Continued> PROCEDURE: CT ABDOMEN AND PELVIS WITH CONTRAST. INDICATION: Elevated liver enzymes, vomiting. COMPARISON: None. TECHNIQUE: Helical imaging was performed diaphragm through the symphysis with multiplanarreconstructions. CT imaging was performed with exposure control parameters to reduce radiati on dose. IV CONTRAST: 100 mL Isovue-300. Same dose given for CTA chest. GI CONTRAST: None. FINDINGS: LOWER CHEST: The lung bases are clear. Small hiatal hernia. SOLID ORGANS: Hepatic steatosis noted. Spleen, pancreas, gallbladder, kidneys and adrenal glands are unremarkable. BOWEL: The bowel is normal. PERITONEUM: No free intraperitoneal fluid or air. RETROPERITONEUM: No adenopathy. The aorta is normal. PELVIS: No pelvic mass. The urinary bladder is normal. MUSCULOSKELETAL: The skeleton is intact. IMPRESSION: 1. No acute pathology in the abdomen or pelvis. 2. Small hiatal hernia 3. Hepatic steatosis. SL: [id number] at 4359 Reported and signed by: Ayaan Vega M.D.PAGE 2 Signed Report (CONTINUED) Name: LILLY MENON [place] : 1980 Age/S: 37 / M [address] [place] [address] Blvd Unit #: [id number] Loc: [place] [address] Phys: Cody Bowden MD Acct: [id number] Dis Date: Status: REG ER PHONE #: [phone] Exam Date: 08/04/2018 1404 FAX #: [phone] Reason: concern for PE EXAMS: CPT CODE: [id number] [place] [address] <Continued> CC: Cody Bowden MD Technologist:RT Kiran(R)(CT) CTDI: DLP: Trnscb Date/Time: 08/04/2018 (1448) [id number] Orig PrintD/T: S: 08/04/2018 (6938) PAGE 3 Signed ReportPROCALCITONIN (PCT)2018-08-04 13:51:00 Test Item Value Reference Range Interpretation Comments PROCALCITONIN (PCT) 0.42 ng/mL 0.00-0.05 H PROCALCI TONIN (PCT) (test code = PROCAL) NORMAL RANGE (ADULT): <0.05 NG/ML. * a concentration < 0.5 ng/mL represent s a low risk of severe sepsis and/or septic s hock.* a concentration > 2 ng/mL represents a hi gh risk of severe seps is and/or septic shock.Neverthel ess, concentrations <0.5 ng/mL do not ex clude aninfection, on account of localized in fections (withoutsystemi c signs) which can be as sociated with such lowconcentratio ns, or a systemic infect ion in its initialstag es (< 6 hours). Further more, increased procalcitoninca n occur without infecti on. PCT concentrations between 0.5and 2.0 ng/m L should be interpreted taking into account thepatient's hi story. It is recommend ed to retest PCT with in6-24 hours if any concentrations <2 ng/mL are obtained. HEPATIC FUNCTION [id number] 12:53:00 Test Item Value Reference Range Interpretation Comments TOTAL PROTEIN (test code = PROT) 6.8 g/dL 6.4-8.2 N ALBUMIN (test code = ALB) 3.40 g/dL 3.4-5.0 N BILIRUBIN TOTAL (test code = 1.30 mg/dL 0.0-1.0 H BILT) BILIRUBIN DIRECT (test code = 0.40 MG/DL 0.0-0.30 H BILD) BILIRUBIN INDIRECT (test code = 0.90 MG/DL BILIND) SGOT/AST (test code = AST) 293 IUnit/L 15-37 H SGPT/ALT (test code = ALT) 367 IUnit/L 15-65 H ALKALINE PHOSPHATASE TOTAL (test 139 IUnit/L 20-125 H code = ALKP) [id number] 12:47:00 Test Item Value Reference Range Interpretation Comments D-DIMER (test 554 ng/mlFEU <=500 HH THROMBOSIS AN D/OR PULMONARY code = EMBOLISM AND TH E CLINICAL DDIMER) CUT- OFF VALUE FOR EXCLUSION (500 ng/mL FEU) OF THESE CONDITIONSIS VA LIDATED BY THE MANUFACTURE R OF THE METHOD. A NEGAT GISELA D-DIMER RESULT WHEN COM BINED WITH A CLINICALASSESSM ENT OF LOW PRETEST PROBABI LITY HAS BEEN SHOWN TO HAVEA HIGH NEGATIVE PREDICTIVE VALU E OF DVT OR PE. D-DIMER JAY UES >500 ng/mL FEU ARE N OT DIAGNOSTIC FOR DVT, PEor D IC WITHOUT OTHER CONFIRMAT ORY TESTS AND APPROPRIATECLIN ICAL EUALUATIONS. CBC W/AUTO [id number] 12:32:00 Test Item Value Reference Range Interpretation Comments WHITE BLOOD CELL (test code = 6.93 x10 3/uL 4.5-11.0 N WBC) RED BLOOD CELL (test code = 4.85 x10 6/uL 4.00-5.60 N RBC) HEMOGLOBIN (test code = HGB) 16.1 g/dL 12.5-16.9 N HEMATOCRIT (test code = HCT) 45.8 % 37.5-50.7 N MEAN CELL VOLUME (test code = 94.4 fL 81.0-99.0 N MCV) MEAN CELL HGB (test code = MCH) 33.2 pg 27.0-33.0 H MEAN CELL HGB CONCETRATION 35.2 g/dL 33.0-37.0 N (test code = MCHC) RED CELL DISTRIBUTION WIDTH CV 12.9 % 11.5-14.5 N (test code = RDW) RED CELL DISTRIBUTION WIDTH SD 44.3 fL 37.0-54.0 N (test code = RDW-SD) PLATELET COUNT (test code = 204 x10 3/uL 150-400 N PLT) MEAN PLATELET VOLUME (test code 10.3 fL 7.0-9.0 H = MPV) NEUTROPHIL % (test code = NT%) 52.2 % 56.0-77.0 L IMMATURE GRANULOCYTE % (test 0.3 % 0.0-2.0 N code = IG%) LYMPHOCYTE % (test code = LY%) 37.4 % 14.0-32.0 H MONOCYTE % (test code = MO%) 8.5 % 4.8-9.0 N EOSINOPHIL % (test code = EO%) 0.6 % 0.3-3.7 N BASOPHIL % (test code = BA%) 1.0 % 0.0-2.0 N NUCLEATED RBC % (test code = 0.0 % 0-0 N NRBC%) NEUTROPHIL # (test code = NT#) 3.62 x10 3/uL 2.0-7.6 N IMMATURE GRANULOCYTE # (test 0.02 x10 3/uL 0.00-0.03 N code = IG#) LYMPHOCYTE # (test code = LY#) 2.59 x10 3/uL 1.0-3.8 N MONOCYTE # (test code = MO#) 0.59 x10 3/uL 0.1-0.8 N EOSINOPHIL # (test code = EO#) 0.04 x10 3/uL 0.0-0.2 N BASOPHIL # (test code = BA#) 0.07 x10 3/uL 0.0-0.2 N NUCLEATED RBC # (test code = 0.00 x10 3/uL 0.0-0.1 N NRBC#) MANUAL DIFF REQUIRED (test code NO = MDIFF) - XR CHEST 1 [id number] 12:28:00 FAX: Cody Garcia MD [phone] [place]: St: PRE Name[facility] [place] : 1980 Age/S: 37/M [address] [place] [address] Unit#: [id number] Loc: [place] [address] Phys: Cody Bwoden MD Acct: [id number] Dis Date: Status: PRE ER PHONE #: [phone] Exam Date: 08/04/2018 1225 FAX #: [phone] Reason: concern for infection EXAMS: CPT CODE: [id number] XR CHEST 1 V 13853 CHEST, ONE VIEW: HISTORY: Concern for infection. COMPARISON EXAM(S): None available FINDINGS: This single portable view was obtained at 1218 hours on 08/04/2018 and shows the cardiac silhouette to be normal and the lungs clear. No pleural fluid or evidence of pneumothorax. The skeletal structures are unremarkable. IMPRESSION: 1. Negative examination ofthe chest. SL:01 at 1228 Reported and signed by: Omar Rowland M.D. CC: Cody Bowden MD Technologist: RT Kourtney(R) Trnscrd Date/Time/By: 08/04/2018 (1228) : By: Charlene Orig Print D/T: S: 08/04/2018 (2180) PAGE 1 Signed ReportCHEMISTRY 8 [id number] 12:27:00 Test Item Value Reference Range Interpretation Comments ISTAT-SODIUM (test code = NAP) MMOL/L 134-147 ISTAT-POTASSIUM (test code = KP) MMOL/L 3.4-5.0 ISTAT-CHLORIDE (test code = CLP) MMOL/L 100-108 ISTAT CARBON DIOXIDE (test code = mmol/L 21-33 L ISTAT-CO2) ISTAT CALCIUM IONIZED (test code = MG/DL 1.12-1.32 ISTAT-SUSANNE) ISTAT-GLUCOSE (test code = GLUP) MG/DL 70-110 N ISTAT-BUN (test code = BUNP) MG/DL 7-18 N BEDSIDE CREATININE (test code = MG/DL 0.6-1.3 H CREATBED) GLOMERULAR FILTRATION RATE POC 61 ML/MIN (test code = GFRBED) CHEMISTRY 8 [id number] 12:27:00 Test Item Value Reference Range Interpretation Comments ISTAT-SODIUM (test 141 MMOL/L 134-147 N code = NAP) ISTAT-POTASSIUM (test 3.9 MMOL/L 3.4-5.0 N code = KP) ISTAT-CHLORIDE (test 105 MMOL/L 100-108 N Perform ed by code = CLP) certified opera tor at [facility] ISTAT CARBON DIOXIDE 19.0 mmol/L 21-33 L (test code = ISTAT-CO2) ISTAT CALCIUM IONIZED 0.99 MG/DL 1.12-1.32 L (test code = ISTAT-SUSANNE) ISTAT-GLUCOSE (test 93 MG/DL 70-110 N code = GLUP) ISTAT-BUN (test code = 14 MG/DL 7-18 N BUNP) BEDSIDE CREATININE 1.4 MG/DL 0.6-1.3 H (test code = CREATBED) GLOMERULAR FILTRATION 61 ML/MIN RATE POC (test code = GFRBED) TROPONIN-I [id number] 12:23:00 Test Item Value Reference Range Interpretation Comments TROPONIN-I RAPID 0.00 ng/mL 0.00-0.08 N Performed b y certified (test code = swager operator at [facility] Negative: <= 0.0 8 Positive: >= 0.09An elevated troponin value alone is not sufficient todi agnose a myocardial infa rction. Rather, the pat ient sclinical prese ntation (history, physi malena exam) and ECGshould b e used in conjunction wit h troponin in thediagnosti c evaluation of s uspected myocardial infa rction. Aserial samplin g protocol is recommended to facilitate the identification of temporal changes in trop onin levels characteristic of [place]. LACTIC ACID [id number] 12:17:00 Test Item Value Reference Range Interpretation Comments LACTIC ACID POC 6.8 MMOL/L 0.90-1.70 HH Performed by certified (test code = LACTP) swager operator at [facility]
[2020-02-24] MEDS ORDERED: ONDANSETRON 4 MG/2 ML VIAL ONE (20:01)
[2020-02-24] MEDS ORDERED: NA CHLORIDE 0.9% 1,000 ML ONE ×2 (20:01→23:24)
[2020-02-24 20:18] LABS: Albumin 3.3 g/dL (3.4-5.0); Bilirubin Direct 4.1 mg/dL (0-0.2); Potassium 3.6 mmol/L (3.5-5.1); Protein, Total 7.7 g/dL (6.4-8.2)
[2020-02-24] MEDS ORDERED: FAMOTIDINE 20 MG/2 ML VIAL IV ONE (20:19)
[2020-02-24] MEDS ORDERED: MORPHINE 4 MG/ML SYR ONE ×2 (20:19→23:24)
[2020-02-24 20:20] LABS: Bilirubin Total 5.9 mg/dL (0.2-1.0)
[2020-02-24 20:23] LABS: Absolute Lymphocytes (CBC) 3.8 K/uL (0.7-4.9); Basophils % 0.9 % (0-1.3); Hematocrit 43.6 % (39.6-49.0)
--- NOTE | 2020-02-24 21:12 | RAD REPORT ---
EXAM DESCRIPTION: CTAbdomen Pelvis W Contrast - 02/24/2020 8:59 pm CLINICAL HISTORY: Abdominal pain. ABD PAIN COMPARISON: Abdomen Pelvis W Contrast dated 05/19/2018 TECHNIQUE: Biphasic CT imaging of the abdomen and pelvis was performed with 100 ml non-ionic IV cont rast. All CT scans are performed using dose optimization technique as appropriate and may include automated exposure control or mA/KV adjustment according to patient size. FINDINGS: The lung bases are clear. The liver demonstrates diffuse fatty infiltration. The spleen, pancreas, adrenal glands and kidneys a re within normal limits. No bowel obstruction, free air, free fluid or abscess. The appendix is normal. No evidence of signi ficant lymphadenopathy. No suspicious bony findings. IMPRESSION: No acute intra-abdominal or pelvic finding. Advanced fatty liver. Consider correlation with liver function tests.
[2020-02-24] MEDS ORDERED: PROMETHAZINE INJ 25 MG/ML AMP ONE ×2 (21:25→23:36)
[2020-02-24 22:26] LABS: Anisocytosis 1+; Blood Morphology Comment NOTED (NOT SEEN); Platelet Estimate DECR; White Blood Cell Scan OK (OK)
[2020-02-24 23:32] LABS: Urine Blood TRACE (NEG); Urine Glucose NEGATIVE (NEG); Urine Protein 1+ (NEG); Urine Specific Gravity 1.015 (1.005-1.030)
[2020-02-24 23:50] LABS: Protime INR 1.24
--- NOTE | 2020-02-24 23:54 | EDPHYS ---
Physician Documentation [facility] Name: Ramirez Bee Age: 39 yrs Sex: Male : 1980 Arrival Date: 02/24/2020 Time: 15:27 Bed 7 Private MD: ED Physician Aman Vidal HPI: 02/23 21:35 This 39 yrs old Male presents to ER via Ambulatory with complaints of kb Abdominal Pain, Decreased Appetite, Vomiting Blood. 21:35 The patient presents with abdominal pain that is diffuse. Onset: The symptoms/episode kb began/occurred 1 month(s) ago, and became worse 2 week(s) ago. The symptoms do not radiate. Associated signs and symptoms: Pertinent positives: nausea and vomiting, vomiting blood. The symptoms are described as constant. Modifying factors: The symptoms are alleviated by nothing, the symptoms are aggravated by nothing. Severity of pain: At its worst the pain was severe in the emergency department the pain is unchanged. The patient has not experienced similar symptoms in the past. The patient has not recently seen a physician. Pt reports nausea, vomiting and abd pain since . Symptoms got worse 2 weeks ago. Reports blood in vomit today. Historical: - Allergies: 15:52 No Known Allergies; aa5 - Home Meds: 15:52 Nexium Oral [Active]; aa5 - PMHx: 15:52 Acid Reflux; aa5 23:05 Hemachromatosis; sg - PSHx: 15:51 None; aa5 - Immunization history:: Adult Immunizations unknown. - Social history:: Smoking status: Patient reports the use of cigarette tobacco products, smokes one-half pack cigarettes per day, Patient uses alcohol, 1 beer a day . ROS: 21:34 Constitutional: Negative for fever, chills, and weight loss, Cardiovascular: Negative kb for chest pain, palpitations, and edema, Respiratory: Negative for shortness of breath, cough, wheezing, and pleuritic chest pain, Back: Negative for injury and pain, MS/Extremity: Negative for injury and deformity, Skin: Negative for injury, rash, and discoloration, Neuro: Negative for headache, weakness, numbness, tingling, and seizure. 21:34 Abdomen/GI: Positive for abdominal pain, nausea and vomiting, hematemesis. Exam: 21:32 Constitutional: This is a well developed, well nourished patient who is awake, alert, kb and in no acute distress. Head/Face: Normocephalic, atraumatic. ENT: Nares patent. No nasal discharge, no septal abnormalities noted. Tympanic membranes are normal and external auditory canals are clear. Oropharynx with no redness, swelling, or masses, exudates, or evidence of obstruction, uvula midline. Mucous membranes moist. Neck: Trachea midline, no thyromegaly or masses palpated, and no cervical lymphadenopathy. Supple, full range of motion without nuchal rigidity, or vertebral point tenderness. No Meningismus. Chest/axilla: Normal chest wall appearance and motion. Nontender with no deformity. No lesions are appreciated. Cardiovascular: Regular rate and rhythm with a normal S1 and S2. No gallops, murmurs, or rubs. Normal PMI, no JVD. No pulse deficits. Respiratory: Lungs have equal breath sounds bilaterally, clear to auscultation and percussion. No rales, rhonchi or wheezes noted. No increased work of breathing, no retractions or nasal flaring. Back: No spinal tenderness. No costovertebral tenderness. Full range of motion. Skin: Warm, dry with normal turgor. Normal color with no rashes, no lesions, and no evidence of cellulitis. MS/ Extremity: Pulses equal, no cyanosis. Neurovascular intact. Full, normal range of motion. Neuro: Awake and alert, GCS 15, oriented to person, place, time, and situation. Cranial nerves II-XII grossly intact. Motor strength 5/5 in all extremities. Sensory grossly intact. Cerebellar exam normal. Normal gait. 21:32 Eyes: Sclera: icterus, is present. 21:32 Abdomen/GI: Inspection: abdomen appears normal, Bowel sounds: normal, in all quadrants, Palpation: soft, in all quadrants, severe abdominal tenderness, in all quadrants. Vital Signs: 15:53 BP 127 / 85; Pulse 100; Resp 18 S; Temp 98.6(O); Pulse Ox 98% on R/A; Weight 85.28 kg aa5 (M); Height 5 ft. 9 in. (175.26 cm) (R); Pain 9/10; 19:49 BP 133 / 97; Pulse 92; Resp 18; Pulse Ox 95% on R/A; rv 21:17 BP 123 / 88; Pulse 87; Resp 17; Pulse Ox 98% on R/A; rv 22:00 BP 120 / 82; Pulse 104; Resp 18; Pulse Ox 99% on R/A; rv 22:45 BP 111 / 75; Pulse 95; Resp 16; Pulse Ox 96% on R/A; rv 23:30 BP 119 / 81; Pulse 98; Resp 18; Pulse Ox 95% on R/A; rv 02/24 00:15 BP 119 / 79; Pulse 92; Resp 18; Pulse Ox 96% on R/A; rv 01:00 BP 124 / 82; Pulse 89; Resp 18; Pulse Ox 96% on R/A; rv 02/23 15:53 Body Mass Index 27.76 (85.28 kg, 175.26 cm) aa5 MDM: 02/23 19:35 Patient medically screened. kb 21:34 Data reviewed: vital signs, nurses notes. Data interpreted: Pulse oximetry: on room air kb is 98 %. Interpretation: normal. Counseling: I had a detailed discussion with the patient and/or guardian regarding: the historical points, exam findings, and any diagnostic results supporting the discharge/admit diagnosis, lab results, radiology results, the need to transfer to another facility, [facility] does not immediately have the required specialist. 21:58 ED course: Emesis while here has been yellow with red streaks . kb 23:01 ED course: Pt accepted for transfer to [facility] by hospitalist. Pt accepted for kb consult by GI and Operations Vice President at [facility]. 02/23 19:36 Order name: Basic Metabolic Panel kb 02/23 19:36 Order name: CBC with Diff; Complete Time: 22:45 kb 02/23 19:36 Order name: Hepatic Function; Complete Time: 20:23 kb 02/23 19:36 Order name: Lipase; Complete Time: 20:23 kb 02/23 19:36 Order name: Basic Metabolic Panel; Complete Time: 20:23 EDMS 02/23 21:41 Order name: COVID-19 kb 02/23 22:27 Order name: CBC Smear Scan EDMS 02/23 22:49 Order name: Protime (+inr); Complete Time: 00:01 kb 02/23 22:49 Order name: Ptt, Activated; Complete Time: 00:01 kb 02/23 22:51 Order name: ETOH Level; Complete Time: 23:34 kb 02/23 22:51 Order name: UDS; Complete Time: 00:03 kb 02/23 23:24 Order name: Urine Dipstick--Ancillary (enter results); Complete Time: 23:32 ds4 02/23 23:33 Order name: Iron Level; Complete Time: 00:50 kb 02/23 20:29 Order name: CT Abd/Pelvis - IV Contrast Only; Complete Time: 21:15 kb 02/23 23:48 Order name: SARS-COV-2 RT PCR; Complete Time: 23:50 EDMS 02/23 19:36 Order name: IV Saline Lock; Complete Time: 19:42 kb 02/23 19:36 Order name: Labs collected and sent; Complete Time: 19:43 kb Administered Medications: 19:45 Drug: NS 0.9% 1000 ml Route: IV; Rate: 1 bolus; Site: right antecubital; rv 02/24 01:03 Follow up: IV Status: Completed infusion; IV Intake: 1000ml rv 02/23 20:07 Drug: morphine 4 mg {Note: rass 0.} Route: IVP; Site: right antecubital; rv 02/24 01:03 Follow up: Response: No adverse reaction; Pain is decreased; RASS: Alert and Calm (0) rv 02/23 20:07 Drug: Pepcid 20 mg Route: IVP; Site: right antecubital; rv 02/24 01:03 Follow up: Response: No adverse reaction rv 02/23 20:08 Drug: Zofran (Ondansetron) 4 mg Route: IVP; Site: right antecubital; rv 02/24 01:03 Follow up: Response: No adverse reaction rv 02/23 21:12 Drug: Phenergan 12.5 mg Route: IVP; Site: right antecubital; ea 02/24 01:03 Follow up: Response: No adverse reaction rv 02/23 23:17 Not Given (Duplicate Order): morphine 2 mg IVP once; RASS on ADMIN: Combtv4, Very rv Agttd3, Agttd2, Rstlss1, AlertClm0, Drwsy-1, Lt Sdtn-2, Mod Sdtn-3, Dp Sdtn-4, UnArsble-5 23:18 CANCELLED (Duplicate Order): NS 0.45 % 1000 ml IV at 125 ml/hr continuous kb 23:18 Drug: morphine 4 mg {Note: RASS 0.} Route: IVP; Site: right antecubital; rv 02/24 01:03 Follow up: Response: No adverse reaction; Pain is decreased; RASS: Alert and Calm (0) rv 02/23 23:19 Drug: NS 0.9% 1000 ml Route: IV; Rate: 125 ml/hr; Site: right antecubital; rv 02/24 01:04 Follow up: IV Status: Infusion continued upon transfer rv 02/23 23:19 CANCELLED (Duplicate Order): NS 0.9% 1000 ml IV at 125 ml/hr continuous rv 23:24 Drug: Phenergan 12.5 mg Route: IVP; Site: right antecubital; rv 02/24 01:04 Follow up: Response: No adverse reaction rv 02:30 Drug: Phenergan 12.5 mg Route: IVP; Site: right antecubital; ea 02:37 Drug: morphine 4 mg {Note: rass 0.} Route: IVP; Site: right antecubital; ea Disposition: 05:18 Co-signature as Attending Physician, Aman Vidal MD. 7 Disposition: 02/24/20 23:54 Transfer ordered to [facility]. Diagnosis are Abnormal results of liver function studies, Generalized abdominal pain. - Reason for transfer: Higher level of care. - Accepting physician is Dr Horn. - Condition is Stable. - Problem is new. - Symptoms are unchanged. Signatures: Dispatcher [employer] EDNJ Gretta Love, MARTÍN-C DESIGN STUDIO CONSULTANT-Bharath Monae, RN Gracie Carter, RN RN aa5 Cora Newton RN RN Jono Spencer RN Aman John MD MD 7 Corrections: (The following items were deleted from the chart) 02/23 21:58 21:35 Pt reports nausea, vomiting and abd pain since Thanksgiving. Symptoms got worse 2 kb weeks ago. kb 22:19 21:41 CORONAVIRUS ordered. EDNJ EDMS 23:18 23:17 NS 0.45 % 1000 ml IV at 125 ml/hr continuous ordered. rv kb 23:19 23:18 NS 0.9% 1000 ml IV at 125 ml/hr continuous ordered. rv rv 02/24 00:56 02/23 23:54 02/24/2020 23:54 Transfer ordered to [facility]. kb Diagnosis is Abnormal results of liver function studies; Generalized abdominal pain. Reason for transfer: Higher level of care. Accepting physician is Hospitalist [facility]. Condition is Stable. Problem is new. Symptoms are unchanged. kb 02/24 02:57 00:56 02/24/2020 23:54 Transfer ordered to [facility]. rv Diagnosis is Abnormal results of liver function studies; Generalized abdominal pain. Reason for transfer: Higher level of care. Accepting physician is Dr Horn. Condition is Stable. Problem is new. Symptoms are unchanged. kb
--- NOTE | 2020-02-24 23:54 | ER ---
Nurse's Notes [facility] Name: Ramirez Bee Age: 39 yrs Sex: Male : 1980 Arrival Date: 02/24/2020 Time: 15:27 Bed 7 Private MD: Diagnosis: Abnormal results of liver function studies;Generalized abdominal pain Presentation: 02/23 15:50 Chief complaint: Patient states: vomiting blood and generalized abd pain x 2 weeks ago. aa5 Pt denies diarrhea. Coronavirus screen: vomiting. Ebola Screen: Patient negative for fever greater than or equal to 101.5 degrees Fahrenheit, and additional compatible Ebola Virus Disease symptoms. Initial Sepsis Screen: Does the patient meet any 2 criteria? No. Patient's initial sepsis screen is negative. Does the patient have a suspected source of infection? No. Patient's initial sepsis screen is negative. Risk Assessment: Do you want to hurt yourself or someone else? Patient reports no desire to harm self or others. Onset of symptoms was January 2020. 15:50 Method Of Arrival: Ambulatory aa5 15:50 Acuity: JERMAINE 3 aa5 Historical: - Allergies: 15:52 No Known Allergies; aa5 - Home Meds: 15:52 Nexium Oral [Active]; aa5 - PMHx: 15:52 Acid Reflux; aa5 23:05 Hemachromatosis; sg - PSHx: 15:51 None; aa5 - Immunization history:: Adult Immunizations unknown. - Social history:: Smoking status: Patient reports the use of cigarette tobacco products, smokes one-half pack cigarettes per day, Patient uses alcohol, 1 beer a day . Screenin:49 Abuse screen: Denies threats or abuse. Denies injuries from another. Nutritional rv screening: No deficits noted. Tuberculosis screening: No symptoms or risk factors identified. Fall Risk None identified. Assessment: 19:48 General: Appears ill, Behavior is calm, cooperative. Pain: Complains of pain in abdomen rv Pain does not radiate. Pain currently is 10 out of 10 on a pain scale. Quality of pain is described as crampy. Neuro: Level of Consciousness is awake, alert, obeys commands, Oriented to person, place, time, situation. Cardiovascular: Patient's skin is warm and dry. Respiratory: Airway is patent. GI: Bowel sounds present X 4 quads. Abd is soft and non tender X 4 quads. Derm: Skin is intact. 23:01 Reassessment: Patient appears in no apparent distress at this time. pt updated on sg pending transfer. Vital Signs: 15:53 BP 127 / 85; Pulse 100; Resp 18 S; Temp 98.6(O); Pulse Ox 98% on R/A; Weight 85.28 kg aa5 (M); Height 5 ft. 9 in. (175.26 cm) (R); Pain 9/10; 19:49 BP 133 / 97; Pulse 92; Resp 18; Pulse Ox 95% on R/A; rv 21:17 BP 123 / 88; Pulse 87; Resp 17; Pulse Ox 98% on R/A; rv 22:00 BP 120 / 82; Pulse 104; Resp 18; Pulse Ox 99% on R/A; rv 22:45 BP 111 / 75; Pulse 95; Resp 16; Pulse Ox 96% on R/A; rv 23:30 BP 119 / 81; Pulse 98; Resp 18; Pulse Ox 95% on R/A; rv 02/24 00:15 BP 119 / 79; Pulse 92; Resp 18; Pulse Ox 96% on R/A; rv 01:00 BP 124 / 82; Pulse 89; Resp 18; Pulse Ox 96% on R/A; rv 02/23 15:53 Body Mass Index 27.76 (85.28 kg, 175.26 cm) aa5 ED Course: 02/23 15:27 Patient arrived in ED. ag5 15:50 Arm band placed on. aa5 15:51 Triage completed. aa5 19:35 [facility] kb 19:35 Aman Vidal MD is Attending Physician. kb 19:36 Jono Garcia RN is Primary Nurse. rv 19:43 Inserted saline lock: 18 gauge in right antecubital area, using aseptic technique. rv Blood collected. 19:43 Initial lab(s) drawn, by ms, sent to lab. rv 19:49 Patient has correct armband on for positive identification. Placed in gown. Bed in low rv position. Call light in reach. Side rails up X 1. Pulse ox on. NIBP on. 20:59 CT Abd/Pelvis - IV Contrast Only In Process Unspecified. EDMS 21:28 Initiated transfer at [facility] with Tori. Call was transferred to oly Hampton LUBE ATTENDANT, provider of pt for further assesment. 22:02 COVID swab sent to lab. sg 22:43 Tori called back with two physicians to speak with Gretta Love NP, regarding tt3 transfer request. 02/24 00:38 Tori Her called back with admin approval. The accepting physician is Dr. oly Horn. The pt is going to [facility] [address] [place] Bed 955. Face sheet and MOT faxed to per Tori's request. Nurse to call to report to [phone]. 01:15 No provider procedures requiring assistance completed. IV is patent, with fluids rv infusing freely, Patient transferred, IV remains in place. Administered Medications: 02/23 19:45 Drug: NS 0.9% 1000 ml Route: IV; Rate: 1 bolus; Site: right antecubital; rv 02/24 01:03 Follow up: IV Status: Completed infusion; IV Intake: 1000ml rv 02/23 20:07 Drug: morphine 4 mg {Note: rass 0.} Route: IVP; Site: right antecubital; rv 02/24 01:03 Follow up: Response: No adverse reaction; Pain is decreased; RASS: Alert and Calm (0) rv 02/23 20:07 Drug: Pepcid 20 mg Route: IVP; Site: right antecubital; rv 02/24 01:03 Follow up: Response: No adverse reaction rv 02/23 20:08 Drug: Zofran (Ondansetron) 4 mg Route: IVP; Site: right antecubital; rv 02/24 01:03 Follow up: Response: No adverse reaction rv 02/23 21:12 Drug: Phenergan 12.5 mg Route: IVP; Site: right antecubital; ea 02/24 01:03 Follow up: Response: No adverse reaction rv 02/23 23:17 Not Given (Duplicate Order): morphine 2 mg IVP once; RASS on ADMIN: Combtv4, Very rv Agttd3, Agttd2, Rstlss1, AlertClm0, Drwsy-1, Lt Sdtn-2, Mod Sdtn-3, Dp Sdtn-4, UnArsble-5 23:18 CANCELLED (Duplicate Order): NS 0.45 % 1000 ml IV at 125 ml/hr continuous kb 23:18 Drug: morphine 4 mg {Note: RASS 0.} Route: IVP; Site: right antecubital; rv 02/24 01:03 Follow up: Response: No adverse reaction; Pain is decreased; RASS: Alert and Calm (0) rv 02/23 23:19 Drug: NS 0.9% 1000 ml Route: IV; Rate: 125 ml/hr; Site: right antecubital; rv 02/24 01:04 Follow up: IV Status: Infusion continued upon transfer rv 02/23 23:19 CANCELLED (Duplicate Order): NS 0.9% 1000 ml IV at 125 ml/hr continuous rv 23:24 Drug: Phenergan 12.5 mg Route: IVP; Site: right antecubital; rv 02/24 01:04 Follow up: Response: No adverse reaction rv 02:30 Drug: Phenergan 12.5 mg Route: IVP; Site: right antecubital; ea 02:37 Drug: morphine 4 mg {Note: rass 0.} Route: IVP; Site: right antecubital; ea Intake: 01:03 IV: 1000ml; Total: 1000ml. rv Outcome: 02/23 23:54 ER care complete, transfer ordered by . kb 02/24 01:15 Transferred by ground EMS to [facility], Transfer form completed. rv X-rays sent w/ patient. Condition: good Instructed on the need for transfer. 02:57 Patient left the ED. rv Signatures: Dispatcher [employer] EDGretta Pereyra, SCOW HAND-C SCOW HAND-CkBharath Perales RN Gracie Carter, RN RN aa5 Cora Newton RN Jono Jaime ea RN RN Mayi Green ag5 Jostin Roberto tt3
[2020-02-25 00:02] LABS: Barbiturates NEGATIVE (NEGATIVE); Benzodiazepines NEGATIVE (NEGATIVE); Cocaine NEGATIVE (NEGATIVE); METHAMPHETAM NEGATIVE (NEGATIVE); Methadone NEGATIVE (NEGATIVE); Opiates POSITIVE (NEGATIVE); Phencyclidine NEGATIVE (NEGATIVE); THC Cannibis NEGATIVE (NEGATIVE)
[2020-02-25] MEDS ORDERED: PROMETHAZINE INJ 25 MG/ML AMP ONE (02:45)
[2020-02-25] MEDS ORDERED: MORPHINE 4 MG/ML SYR ONE (02:46)
[2020-02-25 04:04] VITALS: TEMP 98.6
[2020-02-25 04:11] VITALS: O2SAT 96
[2020-02-25 04:17] VITALS: BP 124/82
== END 2020-02-25 02:57 | disposition short-term general hospital (02) ==
LOC: ER 15:25
DX: R94.5 Abnormal results of liver function studies (principal); Z20.828 Contact with and (suspected) exposure to other viral communicable diseases; F17.210 Nicotine dependence, cigarettes, uncomplicated
CPT/HCPCS: 36415; 74177; 80048; 80076; 80307; 80320; 81003; 82728; 83690; 85025; 85610; 85730; 96361; 96374; 96375; 99285; J2405; J2550; J7030; Q9967; U0003